=== PATIENT | male | born 1940 | race Caucasian/White ===

== ENCOUNTER 2017-12-23 21:27 | Inpatient (IN) ==
--- NOTE | 2017-12-23 22:50 | XR ---
EXAM DATE: 12/23/2017 10:32 PM EDT AGE/SEX: 77 years / Male INDICATIONS: Chest pain. CLINICAL DATA: This is the patient's initial encounter. Patient reports that signs and symptoms have been present for 1 day and indicates a pain score of 1/10. MEDICAL/SURGICAL HISTORY: . Smoker. . Heart transplant. COMPARISON: No prior exams available for comparison. FINDINGS: There is a focal area of consolidation or mass in the upper right lung. No prior study for comparison . Previous reported heart transplant. Remote left rib fractures. No effusion. Heart size normal. No p neumothorax. Remote granulomatous disease. CONCLUSION: Mass or consolidation right upper lobe. No prior study for comparison. Recommend further evaluation w ith chest CT. There are multiple calcified right paratracheal lymph nodes. Previous sternotomy and reported heart t ransplant. Electronically signed by: Nixno Huerta MD 12/23/2017 10:48 PM EDT
[2017-12-23 23:35] LABS: Hematocrit 25.4 % (39.0-51.0); Hemoglobin 8.6 gm/dL (13.0-17.0); Mean Corpuscular Hemoglobin 30.1 pg (27.0-34.0); Mean Corpuscular Volume 88.6 fL (80.0-100.0); Mean Platelet Volume 6.6 fL (7.0-11.0); Platelet Count 378 th/mm3 (150-450); Red Blood Count 2.86 mil/mm3 (4.50-5.90); Red Cell Distribution Width 15.5 % (11.6-17.2); White Blood Count 11.5 th/mm3 (4.0-11.0)
[2017-12-23 23:45] LABS: Activated Partial Thrombo Time 22.6 sec (24.3-30.1); Prothrombin Time 9.7 sec (9.8-11.6)
[2017-12-24 00:04] LABS: Alanine Aminotransferase 19 U/L (12-78); Alkaline Phosphatase 63 U/L (45-117); Anion Gap 11 meq/L (5-15); Aspartate Aminotransferase 36 U/L (15-37); Blood Urea Nitrogen 33 mg/dL (7-18); Calcium 7.6 mg/dL (8.5-10.1); Carbon Dioxide 22.1 meq/L (21.0-32.0); Chloride 100 meq/L (98-107); Creatine Kinase 122 U/L (39-308); Glomerular Filtration Rate 52 mL/min (>89); Glucose,Random 110 mg/dL (74-106); Sodium 133 meq/L (136-145); Total Protein 6.2 g/dL (6.4-8.2); Troponin I 0.03 ng/mL (0.02-0.05)
[2017-12-24 00:09] LABS: Potassium 5.2 meq/L (3.5-5.1)
[2017-12-24 00:21] LABS: Creatine Kinase MB 1.6 ng/mL (0.5-3.6)
[2017-12-24 01:04] LABS: Eosinophils 5 % (0-4); Lymphocytes 14 % (9-44); Monocytes 5 % (0-8)
[2017-12-24 01:05] LABS: Platelet Estimate Normal (Normal); Platelet Morphology Normal (Normal); Toxic Granulation 1+
[2017-12-24 01:06] LABS: Toxic Vacuolation Present
--- NOTE | 2017-12-24 02:52 | ED ---
HPI General Chief Complaint: Chest Pain Stated Complaint: Evac/Chest Pain Time Seen by Provider: 12/24/17 02:23 History of Present Illness HPI narrative: 77-year-old male presents to the emergency department for complaint of chest pain. Patient has history of previous CAD with myocardial infarction and bypass. Patient states that symptoms are similar to his chest pain symptoms at the time of his ND several years ago. Patient had some associated nausea without vomiting. Some sensation of shortness of breath. Patient states his pain is 6-7/10 in intensity and waxes and wanes in intensity. Patient received sublingual nitroglycerin prior to arrival to the emergency department with minimal effect. Patient denies any referred neck jaw back shoulder arm or abdominal pain. Patient is a [facility] patient with history of diabetes CAD myocardial infarction cardiac catheterization atrial fibrillation rest angina and bullous pemphigoid. Patient is currently on steroid therapy and no antibiotic. Patient's had no fever chills. No cough no congestion no orthopnea no PND no wheezing no abdominal pain no vomiting no diarrhea no urinary symptoms. Patient has lower extremity skin condition with blistering. Patient does not complain of any lower extremity pain at this time. Patient received aspirin prior to arrival to the emergency department and sublingual nitroglycerin. Patient is unable to identify exacerbating or alleviating factors at this time. Complete Quality Measures for STEMI Alert Patients Related Data Home Medications Medication Instructions Recorded Confirmed ascorbic acid (vitamin C) 500 mg PO Q12H 12/23/17 12/23/17 clonidine 1 patch TRANSDERMAL QWEEK 12/23/17 12/23/17 dexamethasone 4 mg PO Q12H 12/23/17 12/23/17 doxazosin 4 mg PO DAILY 12/23/17 12/23/17 insulin lispro 1 sliding scale dose SUB-Q UD 12/23/17 12/23/17 apixaban 2.5 mg PO BID 12/24/17 12/24/17 levothyroxine 75 mcg PO DAILY 12/24/17 12/24/17 lisinopril 20 mg PO DAILY 12/24/17 12/24/17 metoprolol tartrate 50 mg PO BID 12/24/17 12/24/17 multivitamin [Multiple Vitamins] 1 tab PO DAILY 12/24/17 12/24/17 Allergies Allergy/AdvReac Type Severity Reaction Status Date / Time No Known Allergies Allergy Unverified 12/23/17 22:10 Review of Systems Except as stated in HPI: all other systems reviewed are negative [facility] Medical History Medical History Diabetes (Acute) Myocardial infarction (Acute) Hypertension (Acute) Chest pain (Acute) Atrial fibrillation (Acute) Angina at rest (Acute) Surgical History Surgical History Hx of cardiac cath (Acute) Social History Social History Second Hand Smoke Exposure: Yes Smoking Status: Current every day smoker Tobacco Type: Cigarettes How Often Do You Have a Drink Containing Alcohol: Never Recent Travel in [facility] within the Last 8 Weeks: No Recent Out of Country Travel within the Last 8 Weeks: No Immunization History Tetanus Immunization: <5 Years Hx Influenza Vaccine This Season: Yes Exam Narrative Exam Narrative: GENERAL: Well-nourished, well-developed patient. SKIN: Focused skin assessment warm/dry. HEAD: Normocephalic. EYES: No scleral icterus. No injection or drainage. NECK: Supple, trachea midline. No JVD or lymphadenopathy. CARDIOVASCULAR: Regular rate and rhythm without murmurs, gallops, or rubs. Radial and dorsalis pedis pulses 2+ to palpation bilaterally RESPIRATORY: Breath sounds equal bilaterally. No accessory muscle use. GASTROINTESTINAL: Abdomen soft, non-tender, nondistended. MUSCULOSKELETAL: No cyanosis, or edema. Bilateral lower extremity various stages of bolus and vesicular lesions without purulent drainage or edema or tenderness. BACK: Nontender without obvious deformity. No CVA tenderness. Course Initial Documented Vital Signs Temperature 98.5 F 12/23/17 22:20 Pulse Rate 84 12/23/17 22:20 Respiratory Rate 20 12/23/17 22:20 Blood Pressure 225/105 H 12/23/17 22:20 Pulse Oximetry 99 12/23/17 22:20 Last Documented Vital Signs Temperature 98.5 F 12/23/17 22:26 Pulse Rate 94 H 12/24/17 05:50 Respiratory Rate 20 12/24/17 05:50 Blood Pressure 129/79 12/24/17 05:50 Pulse Oximetry 96 12/24/17 05:50 Medical Decision Making MDM Narrative Medical decision making narrative: 77-year-old male presents to the emergency department complaining of chest pain with prior history of CAD and myocardial infarction. Patient is received aspirin and nitroglycerin prior to arrival to the emergency department. Specimens collected and sent for resulting EKG performed reveals no acute ST elevation injury pattern or ectopy. Patient resting comfortably remains pain-free at this time. Lab values pending Chest x-ray shows right upper lobe mass versus infiltrate recommend CT CT negative for PE bilateral masses; patient's case discussed with on-call medicine regarding chest pain with prior history of coronary artery disease ND and stent placement as well as bypass surgery identified to have bilateral masses by CT imaging. Patient be admitted to medicine service for serial enzymes and further evaluation of abnormalities identified by CT imaging. Patient will be placed in observation. Patient discussed with Dr. Arevalo. Differential Diagnosis Differential Diagnosis: Chest pain atypical chest pain ACS ND pneumonia Medical Records Medical records reviewed: Yes I reviewed the patient's medical records. Lab Data Result diagrams: 12/23/17 23:25 12/23/17 23:25 Lab Results 12/23/17 12/23/17 12/23/17 Range/Units 23:25 23:25 23:25 WBC 11.5 H (4.0-11.0) th/mm3 RBC 2.86 L (4.50-5.90) mil/mm3 Hgb 8.6 L (13.0-17.0) gm/dL Hct 25.4 L (39.0-51.0) % MCV 88.6 (80.0-100.0) fL MCH 30.1 (27.0-34.0) pg MCHC 34.0 (32.0-36.0) % RDW 15.5 (11.6-17.2) % Plt Count 378 (150-450) th/mm3 MPV 6.6 L (7.0-11.0) fL Prelim Diff (Auto) Slide review pending WBC Differential Manual diff final Seg Neuts % (Manual) 66 (16-70) % Band Neuts % (Manual) 10 H (0-6) % Lymphocytes % (Manual) 14 (9-44) % Monocytes % (Manual) 5 (0-8) % Eosinophils % (Manual) 5 H (0-4) % Abs Neuts (Manual) 8.7 H (1.8-7.7) th/mm3 Differential Comment . Toxic Granulation 1+ H (None) Toxic Vacuolation Present H (None) Platelet Estimate Normal (Normal) Platelet Morphology Normal (Normal) PT 9.7 L (9.8-11.6) sec INR 1.0 Ratio APTT 22.6 L (24.3-30.1) sec Sodium 133 L (136-145) meq/L Potassium 5.2 H (3.5-5.1) meq/L Chloride 100 (98-107) meq/L Carbon Dioxide 22.1 (21.0-32.0) meq/L Anion Gap 11 (5-15) meq/L BUN 33 H (7-18) mg/dL Creatinine 1.33 H (0.60-1.30) mg/dL Estimated GFR 52 L (>89) mL/min Random Glucose 110 H (74-106) mg/dL Calcium 7.6 L (8.5-10.1) mg/dL Magnesium 2.0 (1.5-2.5) mg/dL Total Bilirubin 0.4 (0.2-1.0) mg/dL AST 36 (15-37) U/L ALT 19 (12-78) U/L Alkaline Phosphatase 63 (45-117) U/L Total Creatine Kinase 122 (39-308) U/L CK-MB (CK-2) 1.6 (0.5-3.6) ng/mL Troponin I 0.03 (0.02-0.05) ng/mL Total Protein 6.2 L (6.4-8.2) g/dL Albumin 2.0 L (3.4-5.0) g/dL 12/24/17 12/24/17 Range/Units 03:50 07:30 WBC (4.0-11.0) th/mm3 RBC (4.50-5.90) mil/mm3 Hgb (13.0-17.0) gm/dL Hct (39.0-51.0) % MCV (80.0-100.0) fL MCH (27.0-34.0) pg MCHC (32.0-36.0) % RDW (11.6-17.2) % Plt Count (150-450) th/mm3 MPV (7.0-11.0) fL Prelim Diff (Auto) WBC Differential Seg Neuts % (Manual) (16-70) % Band Neuts % (Manual) (0-6) % Lymphocytes % (Manual) (9-44) % Monocytes % (Manual) (0-8) % Eosinophils % (Manual) (0-4) % Abs Neuts (Manual) (1.8-7.7) th/mm3 Differential Comment Toxic Granulation (None) Toxic Vacuolation (None) Platelet Estimate (Normal) Platelet Morphology (Normal) PT (9.8-11.6) sec INR Ratio APTT (24.3-30.1) sec Sodium (136-145) meq/L Potassium (3.5-5.1) meq/L Chloride (98-107) meq/L Carbon Dioxide (21.0-32.0) meq/L Anion Gap (5-15) meq/L BUN (7-18) mg/dL Creatinine (0.60-1.30) mg/dL Estimated GFR (>89) mL/min Random Glucose (74-106) mg/dL Calcium (8.5-10.1) mg/dL Magnesium (1.5-2.5) mg/dL Total Bilirubin (0.2-1.0) mg/dL AST (15-37) U/L ALT (12-78) U/L Alkaline Phosphatase (45-117) U/L Total Creatine Kinase 61 (39-308) U/L CK-MB (CK-2) (0.5-3.6) ng/mL Troponin I 0.04 0.04 (0.02-0.05) ng/mL Total Protein (6.4-8.2) g/dL Albumin (3.4-5.0) g/dL Imaging Data Radiologist's impression: ITS Impressions Chest X-Ray 12/23/17 22:11 CONCLUSION: Mass or consolidation right upper lobe. No prior study for comparison. Recommend further evaluation with chest CT. There are multiple calcified right paratracheal lymph nodes. Previous sternotomy and reported heart transplant. Chest CTA 12/24/17 02:57 CONCLUSION: 1. The study is negative for pulmonary embolism. 2. Abnormal opacities in both lungs, the largest is anterior superior on the right measuring 3.7 cm. The other opacities are in the left lung near the periphery. All of the opacities are devoid of air bronchograms. Malignancy and infectious processes are differential considerations. ECG Data Interpretation: EKG: Sinus rhythm with significant background artifact no acute ST elevation injury pattern identified on multiple EKGs except what appears to be age-indeterminate QS septally Discharge Plan Discharge Disposition Patient Disposition: 30 Still Patient Discharge Details Discharge Problem: Chest pain, Lung mass Physicians Team ED Provider: Christina Ibarra Primary Care Provider: ANTONIO, Attending Provider: Heather Benedict Other Providers: Cas Up Discharge Interventions Interventions: Vital Signs Last Done: 12/24/17 05:50 Status ED Status: Admitted Observation Patient
[2017-12-24] MEDS ORDERED: Sodium Chlor 0.9% Inj 500 ML IV.SIG ONE (02:58)
[2017-12-24 04:20] LABS: Troponin I 0.04 ng/mL (0.02-0.05)
[2017-12-24] MEDS ORDERED: Temazepam 15 MG Capsule PO PRN (06:14)
[2017-12-24] MEDS ORDERED: Bisacodyl 10 MG Supp RECTAL PRN (06:14)
[2017-12-24] MEDS: Metoprolol Tartrate 50 MG Tablet PO SCH ×2 (08:42→23:22)
[2017-12-24] MEDS ORDERED: hydrALAZINE 10 MG Tablet PO PRN (15:20)
--- NOTE | 2017-12-24 15:55 | P.HP ---
History of Present Illness Primary Care Physician: UNKNOWN History of Present Illness: Patient is a 77-year-old male with past medical history of diabetes,bullous pemphigoid, [place] status post bypass surgery, hypertension, atrial fibrillation presented to the emergency room with complaints of chest pain. He states that he was laying in bed and he started experiencing chest pain in his mid chest rating it an 8 out of 10 which lasted about 45 minutes to an hour. He called 911 and was brought in. There was no nausea vomiting associated with the chest pain. He states that the pain is the same when he had that bypass surgery. He denied any lightheadedness or dizziness. He denies any radiation to his neck, jaw, arms. currently his chest pain has resolved since he received the nitroglycerin. He feels tired and wants to rest. He denies any lung issues in the past. He admits to coughing on and off however he states he has not been around any sick contacts. He denies any fevers or chills. He denies any abdominal pain. He tells me he has his blistering condition on his lower extremities but no one knows what is causing it. Someone changes the dressing every 1-2 days. Per ER documentation, the patient received sublingual nitroglycerin prior to the arrival to the emergency room with minimal effect, ER physician provided him with nitroglycerin ointment and per patient is helped. Past medical history: diabetes,bullous pemphigoid, [place] status post bypass surgery , hypertension, atrial fibrillation Past medical history: Bypass surgery, cardiac cath Family history: States his parents were healthy and does not comment on their health Social history: Quit smoking "the other night ". Used to smoke 2 packs a day for "plenty of years ", drinks 2-3 beers a day but also mentions "I drink as much as I want ". Denies illegal drug use CODE STATUS: Full - Inpatient Certification If this patient has been admitted as an Inpatient: I certify that the inpatient services were ordered in accordance with Medicare regulations governing the order. This includes certification that hospital inpatient services are reasonable and necessary and in the case of services not specified as inpatient-only under 42 CFR 419.22(n), that they are appropriately provided as inpatient services in accordance to with the 2-midnight benchmark under 43 CFR 412.3(e) Review of Systems All other systems reviewed negative except as stated in HPI [facility] - History History Provided By: Patient - Medical History Medical History: Medical History (Last Reviewed 12/24/17 @ 08:16 by Christina Ibarra MD) Diabetes (Acute) Myocardial infarction (Acute) Hypertension (Acute) Chest pain (Acute) Atrial fibrillation (Acute) Angina at rest (Acute) - Surgical History Surgical History: Surgical History (Last Reviewed 12/24/17 @ 08:16 by Christina Ibarra MD) Hx of cardiac cath (Acute) - Tobacco History Second Hand Smoke Exposure: Yes Tobacco Use In Past 30 Days: Yes Smoking Status: Current every day smoker Tobacco Type: Cigarettes - Alcohol History How Often Do You Have a Drink Containing Alcohol: Never - Travel History Recent Travel in the [place] Within the Last 8 Weeks: No Recent Travel Out of the Country Within the Last 8 Weeks: No - Immunization History Tetanus Immunization: <5 Years Hx Influenza Vaccine This Season: Yes Medications and Allergies Active Medications: Active Medications Al Hydroxide/Mg Hydroxide (Milk Of Magnesia Liq) 30 ml PO Q12H PRN PRN Reason: Mild Constipation Bisacodyl (Dulcolax Supp) 10 mg RECTAL DAILY PRN PRN Reason: SEVERE CONSITIPATION Clonidine HCl (Catapress-Tts 0.1 Mg Patch.7d) 1 patch T-DERMAL Q7D [facility] Last Admin: 12/24/17 08:42 Dose: 1 patch Dexamethasone (Decadron) 4 mg PO Q12H [facility] Last Admin: 12/24/17 06:41 Dose: 4 mg Doxazosin Mesylate (Cardura) 4 mg PO DAILY [facility] Hydralazine HCl (Apresoline) 10 mg PO Q6H PRN PRN Reason: SBP>160, DBP>90 Lactulose (Lactulose Liq) 30 ml PO DAILY PRN PRN Reason: SEVERE CONSITIPATION Levothyroxine Sodium (Synthroid) 75 mcg PO DAILY@0600 [facility] Metoprolol Tartrate (Lopressor) 50 mg PO BID [facility] Last Admin: 12/24/17 08:42 Dose: 50 mg Sennosides (Senokot) 17.2 mg PO Q12H PRN PRN Reason: Moderate Constipation Sodium Chloride (Ns Flush) 2 ml IV.FLUSH UNSCH PRN PRN Reason: FLUSH AFTER USING IV ACCESS Temazepam (Restoril) 15 mg PO HS PRN PRN Reason: INSOMNIA Allergies Allergy/AdvReac Type Severity Reaction Status Date / Time No Known Allergies Allergy Unverified 12/23/17 22:10 Home Medications Medication Instructions Recorded Confirmed Type ascorbic acid (vitamin C) 500 mg PO Q12H 12/23/17 12/23/17 History clonidine 1 patch TRANSDERMAL QWEEK 12/23/17 12/23/17 History dexamethasone 4 mg PO Q12H 12/23/17 12/23/17 History doxazosin 4 mg PO DAILY 12/23/17 12/23/17 History insulin lispro 1 sliding scale dose SUB-Q UD 12/23/17 12/23/17 History apixaban 2.5 mg PO BID 12/24/17 12/24/17 History levothyroxine 75 mcg PO DAILY 12/24/17 12/24/17 History lisinopril 20 mg PO DAILY 12/24/17 12/24/17 History metoprolol tartrate 50 mg PO BID 12/24/17 12/24/17 History multivitamin [Multiple Vitamins] 1 tab PO DAILY 12/24/17 12/24/17 History Exam Vital signs: Vital Signs 12/23/17 22:20 12/23/17 22:25 12/23/17 22:26 Temperature 98.5 F 98.5 F Pulse Rate 84 86 Pulse Rate [Left] 87 Respiratory Rate 20 20 20 Blood Pressure 225/105 H 208/91 H Blood Pressure [Left Arm] 217/96 H Blood Pressure [Right Arm] 220/90 H Pulse Oximetry 99 99 100 12/23/17 23:46 12/24/17 05:50 12/24/17 08:42 Temperature Pulse Rate 94 H 97 H Pulse Rate [Left] Respiratory Rate 20 20 18 Blood Pressure 129/79 154/85 H Blood Pressure [Left Arm] Blood Pressure [Right Arm] Pulse Oximetry 96 99 12/24/17 13:37 12/24/17 14:03 Temperature 98.1 F 98.3 F Pulse Rate 71 64 Pulse Rate [Left] Respiratory Rate 18 14 Blood Pressure 172/78 H 185/83 H Blood Pressure [Left Arm] Blood Pressure [Right Arm] Pulse Oximetry 99 99 Intake & Output 12/23/17 12/24/17 12/24/17 18:59 06:59 18:59 Intake Total 500 / 500 Balance 500 / 500 Weight 72.575 kg Intake: IV 500 / 500 Narrative: GENERAL: Laying on his right side, covers over himself SKIN: Multiple large blisters on the lower extremities, multiple large open wounds on the feet, draining clear fluid, no overt signs of infection. There was some foul smell when removing the dressing. Dressing with old HEAD: Atraumatic. Normocephalic. EYES: Extraocular motion intact. No scleral icterus. No injection or drainage. NECK: Trachea midline. CARDIOVASCULAR: Regular rate and rhythm. RESPIRATORY: No accessory muscle use. Clear to auscultation. No wheezes GASTROINTESTINAL: Abdomen soft, non-tender, nondistended. MUSCULOSKELETAL: Extremities with 1+edema. No obvious deformities. NEUROLOGICAL: Awake and alert. Normal speech. Some weakness noted in lower extremities however he is very painful from his blisters are difficult to assess. PSYCHIATRIC: Appropriate mood and affect; insight and judgment normal. Results - Labs CBC & Chem 7: 12/23/17 23:25 12/23/17 23:25 Labs: Laboratory Results - last 24 hr 12/23/17 12/23/17 12/23/17 23:25 23:25 23:25 WBC 11.5 H RBC 2.86 L Hgb 8.6 L Hct 25.4 L MCV 88.6 MCH 30.1 MCHC 34.0 RDW 15.5 Plt Count 378 MPV 6.6 L Prelim Diff (Auto) Slide review pending WBC Differential Manual diff final Seg Neuts % (Manual) 66 Band Neuts % (Manual) 10 H Lymphocytes % (Manual) 14 Monocytes % (Manual) 5 Eosinophils % (Manual) 5 H Abs Neuts (Manual) 8.7 H Differential Comment . Toxic Granulation 1+ H Toxic Vacuolation Present H Platelet Estimate Normal Platelet Morphology Normal PT 9.7 L INR 1.0 APTT 22.6 L Sodium 133 L Potassium 5.2 H Chloride 100 Carbon Dioxide 22.1 Anion Gap 11 BUN 33 H Creatinine 1.33 H Estimated GFR 52 L Random Glucose 110 H Calcium 7.6 L Magnesium 2.0 Total Bilirubin 0.4 AST 36 ALT 19 Alkaline Phosphatase 63 Total Creatine Kinase 122 CK-MB (CK-2) 1.6 Troponin I 0.03 Total Protein 6.2 L Albumin 2.0 L 12/24/17 12/24/17 03:50 07:30 WBC RBC Hgb Hct MCV MCH MCHC RDW Plt Count MPV Prelim Diff (Auto) WBC Differential Seg Neuts % (Manual) Band Neuts % (Manual) Lymphocytes % (Manual) Monocytes % (Manual) Eosinophils % (Manual) Abs Neuts (Manual) Differential Comment Toxic Granulation Toxic Vacuolation Platelet Estimate Platelet Morphology PT INR APTT Sodium Potassium Chloride Carbon Dioxide Anion Gap BUN Creatinine Estimated GFR Random Glucose Calcium Magnesium Total Bilirubin AST ALT Alkaline Phosphatase Total Creatine Kinase 61 CK-MB (CK-2) Troponin I 0.04 0.04 Total Protein Albumin - Imaging Impressions Chest X-Ray 12/23/17 22:11 CONCLUSION: Mass or consolidation right upper lobe. No prior study for comparison. Recommend further evaluation with chest CT. There are multiple calcified right paratracheal lymph nodes. Previous sternotomy and reported heart transplant. Chest CTA 12/24/17 02:57 CONCLUSION: 1. The study is negative for pulmonary embolism. 2. Abnormal opacities in both lungs, the largest is anterior superior on the right measuring 3.7 cm. The other opacities are in the left lung near the periphery. All of the opacities are devoid of air bronchograms. Malignancy and infectious processes are differential considerations. Caprini VTE Risk Assessment Caprini VTE Risk Assessment: Moderate/High Risk (score >= 2) Caprini Risk Assessment Model: Point Value = 1 Point Value = 2 Point Value = 3 Point Value = 5 Age 41-60 Minor surgery BMI > 25 kg/m2 Swollen legs Varicose veins or History of unexplained or recurrent spontaneous Oral contraceptives or hormone replacement Sepsis (< 1 month) Serious lung disease, including pneumonia (< 1 month) Abnormal pulmonary function Acute myocardial infarction Congestive heart failure (< 1 month) History of inflammatory bowel disease Medical patient at bed rest Age 61-74 Arthroscopic surgery Major open surgery (> 45 min) Laparoscopic surgery (> 45 min) Malignancy Confined to bed (> 72 hours) Immobilizing plaster cast Central venous access Age >= 75 History of VTE Family history of VTE Factor V Leiden Prothrombin [id number] Lupus anticoagulant Anticardiolipin antibodies Elevated serum homocysteine Heparin-induced thrombocytopenia Other congenital or acquired thrombophilia Stroke (< 1 month) Elective arthroplasty Hip, pelvis, or leg fracture Acute spinal cord injury (< 1 month) Prophylaxis Regimen: Total Risk Factor Score Risk Level Prophylaxis Regimen 0-1 Low Early ambulation 2 Moderate Order ONE of the following: *Sequential Compression Device (SCD) *Heparin 5000 units SQ BID 3-4 Higher Order ONE of the following medications: *Heparin 5000 units SQ TID *Enoxaparin/Lovenox 40 mg SQ daily (WT < 150 kg, CrCl > 30 mL/min) *Enoxaparin/Lovenox 30 mg SQ daily (WT < 150 kg, CrCl > 10-29 mL/min) *Enoxaparin/Lovenox 30 mg SQ BID (WT < 150 kg, CrCl > 30 mL/min) AND/OR *Sequential Compression Device (SCD) 5 or more Highest Order ONE of the following medications: *Heparin 5000 units SQ TID (Preferred with Epidurals) *Enoxaparin/Lovenox 40 mg SQ daily (WT < 150 kg, CrCl > 30 mL/min) *Enoxaparin/Lovenox 30 mg SQ daily (WT < 150 kg, CrCl > 10-29 mL/min) *Enoxaparin/Lovenox 30 mg SQ BID (WT < 150 kg, CrCl > 30 mL/min) AND *Sequential Compression Device (SCD) Assessment and Plan - Plan 77-year-old male with Chest pain: hx of [place] status post bypass surgery,History of bypass surgery. Troponin 3 have been negative however patient states the chest pain was the same as when he had his bypass surgery. Nitroglycerin patch helped. Will consult cardiology, Dr. Caicedo aware. Aspirin, morphine and nitroglycerin as needed. Pt already on BB. diabetes: low dose ISS, monitor BS closely. check HbA1C bullous pemphigoid: open wounds over lower ext. Will consult wound care. Appreciate assistance hypertension: home med resumed. Not well controlled. added hydralazine prn atrial fibrillation: on BB. resumed eliquis DVT proph: eliquis Of note pt admits to drinking. will place him on CIWA protocol. fall and sx precautions. he has been counseled
[2017-12-24] MEDS ORDERED: Morphine Inj 4 MG/ML Vial IV.PUSH PRN (16:07)
[2017-12-24] MEDS ORDERED: Dextrose 50% in Water 50 ML Vial IV.PUSH PRN (16:11)
[2017-12-24] MEDS ORDERED: LORazepam 1 MG Tablet PO PRN (16:15)
[2017-12-24] MEDS ORDERED: Haloperidol Inj 5 MG/ML Ampul IV.PUSH PRN (16:15)
[2017-12-24] MEDS: Doxazosin 4 MG Tablet PO SCH (16:43)
[2017-12-24] MEDS: amLODIPine 10 MG Tablet PO SCH (17:26)
--- NOTE | 2017-12-24 17:35 | MB ---
cc: Rohan Caicedo MD DATE: 12/24/2017 REASON FOR CARDIOLOGY CONSULTATION Evaluation of chest pain. HISTORY OF PRESENT ILLNESS: Chaim Shannon is a 77-year-old man admitted to the hospital with chest pain. The patient smokes 2 packs a day. He has had previous bypass surgery, he says, in [place] about 15-20 years ago. He has hypertension and diabetes. He has had a previous heart attack. Apparently is on Eliquis for AFib. I was not able to confirm that with the patient and the Eliquis dose is incorrect. The patient has not been to a doctor in the years, but he said the [facility] will ship the medications to where he is living. He does not have a stable home life. He apparently came in due to chest pain. The patient is able to tell me it was like a needle stabbing him, which is different than the history gave the other doctors. He has been having ongoing weight loss. He has sores on his legs, which he says stink and have been ongoing. He has now been shown to be severely anemic and has a lung mass. He is not having any active chest pain at the time I am seeing him. MEDICATIONS AT HOME: Include: 1. Clonidine. 2. Eliquis. 3. Levothyroxine. 4. Lisinopril. 5. Metoprolol. PAST MEDICAL HISTORY: Includes diabetes, bullous pemphigus, previous NC, previous bypass, hypertension, possible atrial fibrillation but not able to verify that completely. SOCIAL HISTORY: Originally from [place], has lived here since 1955. Longstanding smoking. He says he completely gave up drinking and prior to that, he was an alcoholic. He has given different history to the different providers that have seen him. PHYSICAL EXAMINATION: GENERAL: Shows an unkempt white male lying on his side almost in a type position. VITAL SIGNS: Charted. HEENT: Atraumatic, normocephalic. NECK: Shows no JVD or bruits. CHEST: Diminished breath sounds. CARDIAC: S1, S2. Regular rate and rhythm, I/ systolic ejection murmur. ABDOMEN: Soft. EXTREMITIES: Reveal rashes on his legs. Pulses are palpable. DIAGNOSTIC STUDIES: Hematocrit 25.4; white count is 11,500 with 10% bands. Creatinine is 1.33. Troponin was 0.03, 0.04, 0.04. EKG did not show any acute ST-T wave changes. He has had a chest x-ray and a CT scan. He has got a 3.7 x 2.6 cm right upper lobe mass and also has masses in the left lower chest, 3.3 x 1.4 cm and two 7 mm masses. IMPRESSION: A 77-year-old male with coronary artery disease, longstanding smoking, noncompliance, poor social situation, comes in now with chest pain. There is no evidence for a myocardial infarction. Troponins are fairly flat. EKG does not show acute changes. On top of this, we got severe anemia and possibility of lung cancer by the CT scan. RECOMMENDATIONS: I am going to stay conservative on his heart while his anemia and possible lung cancer get worked up further. There is currently no evidence for infarction. Get him restarted on his medications. He was markedly hypertensive on admission. Hopefully, getting him back on his medications, his blood pressure will normalize. Further therapy to be determined. MD IVY Isidro/TERENCE , 05:14 PM , 05:33 PM
--- NOTE | 2017-12-24 18:00 | ECG ---
Date Performed: 12/24/2017 Time Performed: 07:18:31 PTAGE: 77 years EKG: Sinus rhythm WITH OCCASIONAL SUPRAVENTRICULAR PREMATURE COMPLEXES BORDERLINE ECG NO PREVIOUS TRACING DOCTOR: Marie Tavarez Interpretating Date/Time 12/24/2017 17:57:51
--- NOTE | 2017-12-24 18:23 | P.CON ---
History of Present Illness Service: Hematology/oncology. Consult date: 12/24/17 Primary Care Provider: [facility]. [facility] team. Chief Complaint: Substernal chest pain. Unintended weight loss. Generalized fatigue. History of Present Illness: Mr. Shannon is a very pleasant 77-year-old male with an extensive past history of tobaccoism, he reports having smoked daily for about 60 years before he quit "a few days ago ". 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 The patient prior to this hospitalization was a resident of a longterm facility, prior to that he had been residing in a motel in [place]. Mr. Shannon reports progressive weakness and fatigue and unintended weight loss over the past several months, in October 2017 he was hospitalized at this facility for blister-like fluid-filled lesions on his skin. He was assessed to have pemphigus and was evaluated by various medical specialties and was recommended outpatient evaluation by dermatology. Following discharge from this facility I believe he was transferred to a longterm facility. The patient at that time i.e. October 2017 underwent a chest x-ray which was assessed to have no acute abnormalities. On the day of presentation the patient reports noting chest pain, he points to his sternum, he tells me the pain was severe and arose "out of the blue ". He was brought into the emergency department here at [facility] and since admission has been initiated on a nitroglycerin patch and I believe is currently awaiting a cardiac workup. CT angiogram of the chest was performed, this revealed an approximate 3.5 cm mass involving the right upper lobe of the lung concerning for either a consolidative pneumonia or neoplasm. Additionally he was noted to have a opacity involving the left lower lobe posterior segment in the supra diaphragmatic area which is also concerning for either consolidative process, atelectasis or underlying malignancy. The oncology service is been asked to see him for further workup and management. At present the patient denies ongoing chest pain. Review of Systems Constitutional: Reports anorexia, Reports daytime sleepiness, Reports fatigue, Reports lack of energy, Reports malaise, Reports weakness, Reports weight loss, Denies body ache(s), Denies chills, Denies excessive sweating, Denies fever(s), Denies headache(s), Denies increased appetite, Denies night sweats, Denies weight gain, Denies other Eyes: Denies blind spots, Denies blurry vision, Denies bulging eyes, Denies change in vision, Denies double vision, Denies discharge, Denies dry eyes, Denies floaters, Denies irritation, Denies itchy eyes, Denies loss of vision, Denies pain, Denies requires corrective lenses, Denies sensitivity to light, Denies other Ears, Nose, Mouth, and Throat: Denies abnormal hearing, Denies bleeding gums, Denies bad breath, Denies change in voice, Denies dental pain, Denies difficulty swallowing, Denies dizziness, Denies dry mouth, Denies ear discharge , Denies ear pain, Denies facial pain, Denies headache(s), Denies hearing loss, Denies hoarseness, Denies lip swelling, Denies nosebleed, Denies mouth lesions, Denies mouth pain, Denies nasal congestion, Denies nasal discharge, Denies nasal obstruction, Denies nasal trauma, Denies neck lump, Denies neck pain, Denies nose pain, Denies pain with swallowing, Denies poor balance, Denies post nasal drip, Denies ringing in the ears, Denies sinus pain, Denies sinus pressure , Denies sore throat, Denies throat swelling, Denies tongue swelling, Denies other Cardiovascular: Reports chest pain, Reports foot swelling, Reports leg sores, Reports leg swelling, Reports shortness of breath, Reports shortness of breath with activity, Denies chest pain at rest, Denies chest pain with activity, Denies excessive sweating, Denies fainting, Denies fast heart rate, Denies generalized swelling, Denies irregular heart rhythm, Denies leg pain with activity, Denies lightheadedness, Denies radiating jaw, neck or arm pain, Denies rapid, pounding, or irregular heartbeat, Denies shortness of breath when lying down, Denies shortness of breath causing sudden awakening, Denies slow heart rate, Denies other Respiratory: Reports chest congestion, Reports cough, Reports shortness of breath, Denies change in phlegm color, Denies coughing up blood, Denies excessive phlegm production, Denies pain on inspiration, Denies pain with cough , Denies shortness of breath with activity, Denies snoring, Denies stridor, Denies wheezing, Denies other Gastrointestinal: Denies abdominal pain, Denies belching, Denies black, tarry stools, Denies bloating, Denies bright, red blood in stools, Denies change in bowel habits, Denies constant urge to pass stool, Denies change in stools, Denies coffee ground vomit, Denies constipation, Denies cramping, Denies difficulty swallowing, Denies excessive passing of gas, Denies feeling full early, Denies heartburn, Denies incontinent of stools, Denies loose stools, Denies nausea, Denies pain with swallowing, Denies vomiting, Denies vomiting blood, Denies other Genitourinary: Denies blood in semen, Denies blood in urine, Denies decreased urination, Denies difficulty urinating, Denies difficulty with ejaculations, Denies erectile dysfunction, Denies genital lesions, Denies genital pain, Denies painful urination, Denies side pain, Denies frequent nighttime urination , Denies painful ejaculations, Denies penile discharge, Denies scrotal swelling , Denies testicle lump, Denies testicle pain, Denies urinary frequency, Denies urinary hesitancy, Denies urinary incontinence, Denies urinary urgency, Denies other Musculoskeletal: Denies abnormal walking, Denies back pain, Denies body aches, Denies decreased muscle mass, Denies deformity, Denies joint pain, Denies joint swelling, Denies limited joint movement, Denies loss of height, Denies muscle cramps, Denies muscle weakness, Denies neck pain, Denies numbness, Denies radiating pain into limb, Denies stiffness, Denies tingling, Denies other Skin/Breast: Reports bleeding lesions, Reports change in skin color, Reports lesions, Reports new lesions, Reports non-healing lesions, Reports redness, Reports rash, Reports skin ulcer, Reports sores, Reports wounds, Denies acne, Denies boil, Denies breast swelling, Denies breast skin changes, Denies breast pain, Denies breast lump, Denies change in breast shape, Denies change in hair, Denies changing lesions, Denies dry skin, Denies excessive hair growth, Denies hair loss, Denies itching, Denies nail changes, Denies nipple discharge, Denies sensitivity to light, Denies skin pain, Denies stretch cardoso, Denies unusual bruising, Denies yellowing of the skin, Denies other Neurologic: Denies abnormal hearing, Denies abnormal movements, Denies abnormal speech, Denies abnormal walking, Denies behavioral changes, Denies burning sensations, Denies confusion, Denies dizziness, Denies fainting, Denies frequent falls, Denies headache(s), Denies lack of coordination, Denies localized weakness, Denies loss of vision, Denies memory loss, Denies numbness, Denies other visual disturbances, Denies radiating pain, Denies restless legs, Denies convulsions, Denies seizure-like activity, Denies sensory deficit, Denies tingling, Denies tingling/numbness/burning sensations, Denies tremor(s), Denies unsteadiness, Denies weakness, Denies other Psychiatric: Denies abnormal sleep pattern, Denies anxiety, Denies behavioral changes, Denies change in appetite, Denies change in sex drive, Denies confusion , Denies depression, Denies difficulty concentrating, Denies hearing things others do not hear, Denies hopelessness, Denies irritability, Denies lack of enjoyment, Denies memory loss, Denies mood swings, Denies panic attacks, Denies paranoia, Denies seeing things others do not see, Denies sensing things others do not sense, Denies tactile hallucinations, Denies thoughts of hurting/killing others, Denies thoughts of hurting/killing yourself, Denies other Endocrine: Denies cold intolerance, Denies excessive sweating, Denies flushing, Denies heat intolerance, Denies increased hunger, Denies increased thirst, Denies increased urination, Denies rapid, pounding, or irregular heartbeat, Denies other Hematologic/Lymphatic: Reports easy bruising, Denies easy bleeding, Denies enlarged lymph nodes, Denies other Allergic/Immunologic: Denies GI upset with certain foods, Denies hives, Denies itchy eyes, Denies lip swelling, Denies seasonal runny nose, Denies throat swelling, Denies tongue swelling, Denies wheezing, Denies other PMFSH - History History Provided By: Patient - Medical History Medical History: Medical History (Last Updated 12/24/17 @ 18:16 by Vinay Butler MD) Diabetes (Acute) Myocardial infarction (Acute) Hypertension (Acute) Chest pain (Acute) Atrial fibrillation (Acute) Angina at rest (Acute) Coronary artery disease Lesion of left lung Lesion of right lung - Surgical History Surgical History: Surgical History (Last Updated 12/24/17 @ 18:16 by Vinay Butler MD) Hx of cardiac cath (Acute) S/P CABG x 3 - Tobacco History Second Hand Smoke Exposure: Yes Tobacco Use In Past 30 Days: Yes Smoking Status: Current every day smoker Tobacco Type: Cigarettes - Alcohol History How Often Do You Have a Drink Containing Alcohol: Never - Travel History Recent Travel in the [place] Within the Last 8 Weeks: No Recent Travel Out of the Country Within the Last 8 Weeks: No - Immunization History Tetanus Immunization: <5 Years Hx Influenza Vaccine This Season: Yes Medications and Allergies Active Medications: Active Medications Al Hydroxide/Mg Hydroxide (Milk Of Sophia Reagan) 30 ml PO Q12H PRN PRN Reason: Mild Constipation Amlodipine Besylate (Norvasc) 10 mg PO DAILY [facility] Aspirin (Ecotrin) 81 mg PO DAILY [facility] Azithromycin (Zithromax) 500 mg PO DAILY [facility] Bisacodyl (Dulcolax Supp) 10 mg RECTAL DAILY PRN PRN Reason: SEVERE CONSITIPATION Clonidine HCl (Catapress-Tts 0.1 Mg Patch.7d) 1 patch T-DERMAL Q7D [facility] Last Admin: 12/24/17 08:42 Dose: 1 patch Clonidine HCl (Catapres) 0.2 mg PO Q6H PRN PRN Reason: SBP>180, DBP>100, HR>65 Dexamethasone (Decadron) 4 mg PO Q12H [facility] Last Admin: 12/24/17 06:41 Dose: 4 mg Dextrose (D50w Vial) 50 ml IV.PUSH UNSCH PRN PRN Reason: PER HYPOGLYCEMIA PROTOCOL Doxazosin Mesylate (Cardura) 4 mg PO DAILY [facility] Last Admin: 12/24/17 16:43 Dose: 4 mg Flumazenil (Romazecon Inj) 0.2 mg IV.PUSH Q1M PRN PRN Reason: OVERSEDATION Glucagon (Glucagon Inj) 1 mg OTHER PRN PRN PRN Reason: for Hypoglycemia Protocol Haloperidol Lactate (Haldol Inj) 1 mg IV.PUSH Q15M PRN PRN Reason: for severe agitation Hydralazine HCl (Apresoline) 10 mg PO Q6H PRN PRN Reason: SBP>160, DBP>90 Last Admin: 12/24/17 16:39 Dose: 10 mg Sodium Chloride (Ns Inj) 1,000 mls @ 84 mls/hr IV.CONT .[id number] [facility] Ceftriaxone Sodium 1,000 mg/ (Sodium Chloride) 100 mls @ 200 mls/hr IV.SIG Q24H [facility] Insulin Aspart (Novolog Insulin Suppl Scale Inj) 0 unit SQ ACHS [facility]; Protocol Lactulose (Lactulose Liq) 30 ml PO DAILY PRN PRN Reason: SEVERE CONSITIPATION Levothyroxine Sodium (Synthroid) 75 mcg PO DAILY@0600 [facility] Lorazepam (Ativan) 1 mg PO Q4H PRN PRN Reason: for CIWA 8-10 Lorazepam (Ativan) 2 mg PO Q2H PRN PRN Reason: for CIWA 11-14 Lorazepam (Ativan Inj) 2 mg IV.PUSH Q2H PRN PRN Reason: for CIWA 11-14 Lorazepam (Ativan Inj) 2 mg IV.PUSH Q1H PRN PRN Reason: for CIWA 15-20 Lorazepam (Ativan Inj) 2 mg IV.PUSH Q15M PRN PRN Reason: for CIWA > 20 Lorazepam (Ativan Inj) 1 mg IV.PUSH Q4H PRN PRN Reason: for CIWA 8-10 Metoprolol Tartrate (Lopressor) 50 mg PO BID [facility] Last Admin: 12/24/17 08:42 Dose: 50 mg Morphine Sulfate (Morphine Inj) 2 mg IV.PUSH Q4H PRN PRN Reason: CHEST PAIN Nitroglycerin (Nitro-Bid 2% Oint) 0.5 inch TOPICAL Q6HR [facility] Sennosides (Senokot) 17.2 mg PO Q12H PRN PRN Reason: Moderate Constipation Sodium Chloride (Ns Flush) 2 ml IV.FLUSH UNSCH PRN PRN Reason: FLUSH AFTER USING IV ACCESS Temazepam (Restoril) 15 mg PO HS PRN PRN Reason: INSOMNIA Allergies Allergy/AdvReac Type Severity Reaction Status Date / Time No Known Allergies Allergy Unverified 12/23/17 22:10 Home Medications Medication Instructions Recorded Confirmed Type ascorbic acid (vitamin C) 500 mg PO Q12H 12/23/17 12/23/17 History clonidine 1 patch TRANSDERMAL QWEEK 12/23/17 12/23/17 History dexamethasone 4 mg PO Q12H 12/23/17 12/23/17 History doxazosin 4 mg PO DAILY 12/23/17 12/23/17 History insulin lispro 1 sliding scale dose SUB-Q UD 12/23/17 12/23/17 History apixaban 2.5 mg PO BID 12/24/17 12/24/17 History levothyroxine 75 mcg PO DAILY 12/24/17 12/24/17 History lisinopril 20 mg PO DAILY 12/24/17 12/24/17 History metoprolol tartrate 50 mg PO BID 12/24/17 12/24/17 History multivitamin [Multiple Vitamins] 1 tab PO DAILY 12/24/17 12/24/17 History Physical Exam Vital signs: Vital Signs 12/23/17 22:20 12/23/17 22:25 12/23/17 22:26 Temperature 98.5 F 98.5 F Pulse Rate 84 86 Pulse Rate [Left] 87 Respiratory Rate 20 20 20 Blood Pressure 225/105 H 208/91 H Blood Pressure [Left Arm] 217/96 H Blood Pressure [Right Arm] 220/90 H Pulse Oximetry 99 99 100 12/23/17 23:46 12/24/17 05:50 12/24/17 08:42 Temperature Pulse Rate 94 H 97 H Pulse Rate [Left] Respiratory Rate 20 20 18 Blood Pressure 129/79 154/85 H Blood Pressure [Left Arm] Blood Pressure [Right Arm] Pulse Oximetry 96 99 12/24/17 13:37 12/24/17 14:03 12/24/17 16:00 Temperature 98.1 F 98.3 F 99.1 F Pulse Rate 71 64 67 Pulse Rate [Left] Respiratory Rate 18 14 18 Blood Pressure 172/78 H 185/83 H 224/88 H Blood Pressure [Left Arm] Blood Pressure [Right Arm] Pulse Oximetry 99 99 100 12/24/17 17:25 Temperature Pulse Rate Pulse Rate [Left] Respiratory Rate Blood Pressure 151/75 H Blood Pressure [Left Arm] Blood Pressure [Right Arm] Pulse Oximetry Intake & Output 12/23/17 12/24/17 12/24/17 18:59 06:59 18:59 Intake Total 500 / 500 Balance 500 / 500 Weight 72.575 kg Intake: IV 500 / 500 - Constitutional no acute distress Comments: Chronically ill-appearing elderly male, laying in bed not acutely distressed. Wrapped in multiple blankets. - Routine HEENT Exam Head: Present: normocephalic, atraumatic. Absent: cushingoid faces, abrasion, laceration, hematoma Eye: Present: EOMI, PERRL, normal accommodation. Absent: implant ENT: Present: mucous membranes moist, oropharynx clear - Routine Neck Exam Present: supple, full ROM. Absent: JVD, carotid bruit, normal carotid upstroke - Routine Respiratory Exam Present: prolonged expiratory phase. Absent: accessory muscle use, rales, respiratory distress, rhonchi, stridor, wheezes, crackles - Routine Cardiovascular Exam Present: RRR, S1, S2 - Routine Abdominal Exam Present: soft, normoactive bowel sounds. Absent: tenderness, distended, rebound , guarding, firm, rigid, organomegaly, mass - Detailed Abdominal Exam Palpation/Percussion: Absent: hepatomegaly, Almanza's sign, splenomegaly Abdominal exam hernia: Absent: epigastric, incisional - Routine Extremities Exam Comments: Bilateral lower extremity edema. Extensive skin changes related to pemphigus and bruising. - Routine Neurological Exam Present: alert, oriented X3, CN II-XII intact, normal reflexes. Absent: sensory deficit, motor deficit - Detailed Neurological Exam: Coma Scale Eye Opening: Spontaneous - Routine Psychiatric Exam Present: normal affect Assessment and Plan - Assessment (1) Lung mass Code(s): R91.8 - Other nonspecific abnormal finding of lung field Status: Acute Plan: CT-guided biopsy of right upper lobe lung mass ordered. (2) Anemia Code(s): D64.9 - Anemia, unspecified Status: Acute Plan: Etiology of anemia not known, serum iron studies ordered. Stool for occult blood testing has been ordered as well, sample collection and results are pending. - Plan Mr. Shannon is a 77-year-old male with an extensive past history of tobaccoism, pemphigus, coronary artery disease and what appears to be failure to thrive. He presents to the hospital with complaints of sternal chest pain. Imaging studies performed in the emergency department revealed a consolidative mass involving the right upper lobe of the lung and a second mass/lesion involving the left lower lobe. Oncology service and asked to see him for further workup and management. Plan: 1. Right upper lobe lung mass: Request CT-guided biopsy. This is been ordered. 2. Complete staging with CT scan of the abdomen pelvis. 3. Anemia: Request serum iron studies, stool for occult blood has been ordered already. Oncology follow along with you. Records will need to be 4 to the [facility] in [place]. Code Status: Full Discussed Condition With: Patient.
--- NOTE | 2017-12-24 18:57 | CT ---
EXAM DATE: 12/24/2017 6:38 PM EDT AGE/SEX: 77 years / Male INDICATIONS: Tumor. CLINICAL DATA: This is the patient's initial encounter. Patient reports that signs and symptoms have been present for 1 day and indicates a pain score of Nonresponsive. MEDICAL/SURGICAL HISTORY: Diabetes. Cardiovascular disease. Hypertension. None. RADIATION DOSE: 4.97 CTDI (mGy) COMPARISON: [facility], CTA PULMONARY W CONTRAST W 3D, 12/24/2017. . TECHNIQUE: Multiple contiguous axial images were obtained through the abdomen. Images were obtained using multiple row detector helical technique. Using automated exposure control and adjustment of the mA and/or kV according to patient size, radiation dose was kept as low as reasonably achievable to o btain optimal diagnostic quality images. DICOM format image data is available electronically for rev iew and comparison. FINDINGS: Liver: The liver has a homogeneous density without space-occupying lesion. There is no dilation of th e biliary tree. Spleen: Homogeneous density without enlargement. Pancreas: Unremarkable without mass or calcification. Kidneys: Normal in size and shape. No evidence of mass or hydronephrosis. Adrenal Glands: Unremarkable. Aorta: Dense atherosclerotic vascular calcifications. Previous right iliac stenting. 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 No evidence of aneurysm. IVC filter in place. Bowel/Mesentery: The bowel loops are grossly unremarkable. The cecum and sigmoid colon have a nilo l configuration. Abdominal Wall: Intact. Retroperitoneum: No evidence of adenopathy in the retrocrural, para-aortic, or deep pelvic regions. Bladder: Dilated. Reproductive Organs: No abnormal masses or calcifications seen. Inguinal: The inguinal region is unremarkable without evidence of adenopathy. Bony Structures: Unremarkable. CONCLUSION: 1. No definite suspicious CT findings in the abdomen or pelvis. 2. Severe atherosclerotic vascular disease. 3. Dilated urinary bladder. Electronically signed by: Blaze Michelle MD 12/24/2017 6:56 PM EDT
--- NOTE | 2017-12-24 19:41 | MB ---
cc: Marcos Houston MD, V J MD DATE: 12/24/2017 REASON FOR CONSULTATION: Respiratory insufficiency and lung infiltrates. HISTORY OF PRESENT ILLNESS: This is a 77-year-old man with a past history of COPD and history of smoking for over 60 years who was experiencing chest pains and shortness of breath and apparently was sent to the ER from his custodial facility. The patient has lost weight and states that he has lost over 50 pounds in the past 3 to 4 months. He has had some leg edema and blisters on his lower extremities and these are being managed by the hotel maintenance technician. The patient also admits to having an occasional cough, but denies any hemoptysis. He has had no fevers or chills and denies nausea, vomiting or aspiration. Upon arrival, a chest CT was done, which showed no evidence of pulmonary emboli, but had a 3.5 cm mass in the right upper lobe of the lung, which was suspicious for pneumonia and/or mass. Also, he had another opacity in the left lower lobe just above the diaphragm. The patient is presently comfortable and is not on any oxygen and maintaining his saturation of over 92%. HABITS: The patient smoked 1/2 to 1 pack per day for over 60 years. Alcohol use in the past, but not recently. PAST MEDICAL HISTORY: Has included history of myocardial infarct, history of hypertension and atrial fibrillation and history of diabetes mellitus, history for lesions in both lungs. He has had CABG x3 and cardiac catheterizations done in the past. ALLERGIES: NO SIGNIFICANT DRUG ALLERGIES. MEDICATIONS: List was reviewed. 1. Clonidine 0.2 mg every 6 hours p.r.n. 2. Zithromax 500 mg daily. 3. Amlodipine 10 mg daily 4. Haldol 1 mg q.2 hours p.r.n. 5. Decadron 4 mg p.o. b.i.d. 6. Hydralazine 10 mg q.6 p.r.n. 7. Eliquis 2.5 mg b.i.d. 8. Doxazosin 4 mg daily. 9. Levothyroxine 75 mcg a day 10. Metoprolol 50 mg b.i.d. 11. Lisinopril 20 mg a day. REVIEW OF SYSTEMS: The patient has lost weight. He has leg edema. He has blisters on his skin. He has dizzy attacks, postnasal drip. He has wheezing, chest congestion. He has some abdominal discomfort and urinary frequency. Denies anxiety or depression, but has some weakness of extremities. FAMILY HISTORY: Noncontributory. PHYSICAL EXAMINATION: GENERAL: This is a thinly built, elderly man who is pale and dyspneic at rest. VITAL SIGNS: Blood pressure is 178/70, pulse is 85, respirations 20, temperature 98.2. HEENT: Head is normocephalic. Pupils are reactive. Sclerae were clear. Throat is clear. Ears - No inflammation. NECK: Supple. No venous distention. Trachea midline. CHEST: Decreased excursions. Breath sounds are diminished at the periphery with occasional wheezes bilaterally. No crackles on either side. HEART: Sounds are regular S1 and S2. No murmur. No S3. ABDOMEN: Soft, nontender. Bowel sounds are active. Liver edge is just felt below the costal margin. Bowel sounds are active. EXTREMITIES: 2+ edema, more on the right leg. Pemphigoid blisters on the lower extremity with weeping ulcerations. Peripheral pulses are not felt. The patient does move his extremities. NEUROLOGIC: 1+ reflexes with no gross motor deficits. IMPRESSION: 1. Bilateral lung lesions, rule out malignancy versus atypical pneumonia. 2. Chronic obstructive pulmonary disease with emphysema. 3. Edema of lower extremities. 4. History of coronary artery disease and history of coronary artery bypass graft. 5. Anemia of chronic disease. PLAN: The patient will need to go for a CT-guided needle biopsy of the lung lesion. A CT scan of the abdomen is pending. We will add DuoNeb nebulizer q.i.d. A bedside pulmonary function study will be done with bronchodilators and a sputum sent for Gram stain and culture. Further evaluation will depend on the results of the biopsy. Oxygen supplementations will be added as needed to maintain saturations greater than 92. Thank you, Dr. Benedict, for this consultation. Marcos Houston MD VJD/ , 07:03 PM , 07:39 PM
[2017-12-24 20:29] LABS: % Iron Saturation 17.7 % (20-50)
[2017-12-24] MEDS: Sod Chloride 0.9% Inj 1,000 ML IV.CONT SCH (20:29)
[2017-12-24] MEDS: Insulin NovoLOG Aspart Correctional Sugar Inj SQ SCH ×2 (20:50→23:27)
[2017-12-24 23:06] LABS: Hematocrit 25.1 % (39.0-51.0); Hemoglobin 8.5 gm/dL (13.0-17.0)
[2017-12-24] MEDS: Azithromycin 250 MG Tablet PO SCH (23:22)
[2017-12-25] MEDS: Levothyroxine 75 MCG Tablet PO SCH (05:27)
[2017-12-25 06:48] LABS: Baso % (Auto) 0.4 % (0.0-2.0); Eos # (Auto) 0.1 th/mm3 (0.0-0.4); Hematocrit 25.3 % (39.0-51.0); Hemoglobin 8.5 gm/dL (13.0-17.0); Lymph # (Auto) 1.8 th/mm3 (1.0-4.8); Lymph % (Auto) 16.3 % (9.0-44.0); Mean Corpuscular HGB Conc 33.4 % (32.0-36.0); Mean Corpuscular Volume 89.9 fL (80.0-100.0); Mono % (Auto) 8.5 % (0.0-8.0); Neut # (Auto) 8.3 th/mm3 (1.8-7.7); Neut % (Auto) 73.8 % (16.0-70.0); Platelet Count 370 th/mm3 (150-450); Red Blood Count 2.82 mil/mm3 (4.50-5.90); White Blood Count 11.2 th/mm3 (4.0-11.0)
[2017-12-25 07:17] LABS: Albumin 1.8 g/dL (3.4-5.0); Calcium 7.4 mg/dL (8.5-10.1); Carbon Dioxide 21.1 meq/L (21.0-32.0); Potassium 4.1 meq/L (3.5-5.1)
[2017-12-25 07:24] LABS: Total Protein 5.5 g/dL (6.4-8.2)
--- NOTE | 2017-12-25 09:46 | P.PNCA ---
Subjective Interval history: No chest pain Physical Exam Vital signs: Vital Signs 12/24/17 13:37 12/24/17 14:03 12/24/17 16:00 Temperature 98.1 F 98.3 F 99.1 F Pulse Rate 71 64 67 Respiratory Rate 18 14 18 Blood Pressure 172/78 H 185/83 H 224/88 H Pulse Oximetry 99 99 100 12/24/17 17:25 12/24/17 20:00 12/24/17 21:59 Temperature 98.2 F Pulse Rate 85 81 Respiratory Rate 18 18 Blood Pressure 151/75 H 110/63 Pulse Oximetry 99 100 12/24/17 23:59 12/25/17 04:00 Temperature 98.6 F 97.8 F Pulse Rate 93 H 110 H Respiratory Rate 16 16 Blood Pressure 131/65 135/60 Pulse Oximetry 94 L 100 Intake & Output 12/24/17 12/25/17 12/25/17 18:59 06:59 18:59 Intake Total 820 / 820 Balance 820 / 820 Intake: IV 500 / 500 Oral 320 / 320 Narrative: Curled up in bed on his right side Awake, no acute distress Chest diminished BS CV S1S2 RRR with 1/[address] edema Assessment and Plan - Assessment (1) Lung mass Code(s): R91.8 - Other nonspecific abnormal finding of lung field Status: Acute (2) Anemia Code(s): D64.9 - Anemia, unspecified Status: Acute (3) Hypertension Code(s): I10 - Essential (primary) hypertension Status: Acute - Plan I recommend medical therapy. Cardiolofy available but will not be rounding daily - call [facility] if CV help needed.
[2017-12-25] MEDS: Sod Chloride 0.9% Inj 1,000 ML IV.CONT SCH ×2 (09:55→18:38)
[2017-12-25] MEDS: amLODIPine 10 MG Tablet PO SCH (09:55)
[2017-12-25] MEDS: Metoprolol Tartrate 50 MG Tablet PO SCH ×2 (09:55→20:22)
[2017-12-25] MEDS: Doxazosin 4 MG Tablet PO SCH (09:55)
[2017-12-25] MEDS: Azithromycin 250 MG Tablet PO SCH (09:55)
[2017-12-25] MEDS: Insulin NovoLOG Aspart Correctional Sugar Inj SQ SCH ×4 (09:57→23:17)
[2017-12-25 12:28] LABS: Hemoglobin A1c 5.3 % (4.3-6.0)
--- NOTE | 2017-12-25 12:41 | P.PNIM ---
Subjective Interval history: Patient is upset because he has been n.p.o. Otherwise he has no new complaints. Physical Exam Vital signs: Vital Signs 12/24/17 13:37 12/24/17 14:03 12/24/17 16:00 Temperature 98.1 F 98.3 F 99.1 F Pulse Rate 71 64 67 Respiratory Rate 18 14 18 Blood Pressure 172/78 H 185/83 H 224/88 H Pulse Oximetry 99 99 100 12/24/17 17:25 12/24/17 20:00 12/24/17 21:59 Temperature 98.2 F Pulse Rate 85 81 Respiratory Rate 18 18 Blood Pressure 151/75 H 110/63 Pulse Oximetry 99 100 12/24/17 23:59 12/25/17 04:00 12/25/17 09:00 Temperature 98.6 F 97.8 F 98.7 F Pulse Rate 93 H 110 H 90 Respiratory Rate 16 16 20 Blood Pressure 131/65 135/60 174/79 H Pulse Oximetry 94 L 100 Intake & Output 12/24/17 12/25/17 12/25/17 18:59 06:59 18:59 Intake Total 820 / 820 1000 / 1000 Balance 820 / 820 1000 / 1000 Intake: IV 500 / 500 1000 / 1000 NS Inj 1,000 ML @ 84 mls/hr IV. 1000 / 1000 CONT .[id number] [facility] Rx#:[id number] Oral 320 / 320 Narrative: GENERAL: Patient appear frail CARDIOVASCULAR: Normal rate and regular rhythm without murmurs, gallops, or rubs. RESPIRATORY: Markedly diminished breath sounds at the bases. Otherwise mostly clear to auscultation. GASTROINTESTINAL: Abdomen soft, non-tender, non-distended. Normal active bowel sounds MUSCULOSKELETAL: Bilateral lower extremities wrapped with intact dressings. NEURO: Alert & Oriented x4 to person, place, time, situation. PSYCH: Irritable mood Results - Labs CBC & Chem 7: 12/25/17 05:37 12/25/17 05:37 Laboratory Results - last 24 hr 12/24/17 12/24/17 12/24/17 07:30 07:30 07:30 WBC RBC Hgb Hct MCV MCH MCHC RDW Plt Count MPV Neut % (Auto) Lymph % (Auto) [place] % (Auto) Eos % (Auto) Baso % (Auto) Neut # (Auto) Lymph # (Auto) [place] # (Auto) Eos # (Auto) Baso # (Auto) WBC Differential Differential Comment Sodium Potassium Chloride Carbon Dioxide Anion Gap BUN Creatinine Estimated GFR POC Glucose Random Glucose Calcium Prot Corrected Calcium Iron 35 L TIBC 197 L % Saturation 17.7 L Ferritin 443 H Total Bilirubin AST ALT Alkaline Phosphatase Total Protein Albumin Vitamin B12 257 Folate 13.5 12/24/17 12/24/17 12/24/17 17:51 22:40 23:23 WBC RBC Hgb 8.5 L Hct 25.1 L MCV MCH MCHC RDW Plt Count MPV Neut % (Auto) Lymph % (Auto) [place] % (Auto) Eos % (Auto) Baso % (Auto) Neut # (Auto) Lymph # (Auto) [place] # (Auto) Eos # (Auto) Baso # (Auto) WBC Differential Differential Comment Sodium Potassium Chloride Carbon Dioxide Anion Gap BUN Creatinine Estimated GFR POC Glucose 97 137 H Random Glucose Calcium Prot Corrected Calcium Iron TIBC % Saturation Ferritin Total Bilirubin AST ALT Alkaline Phosphatase Total Protein Albumin Vitamin B12 Folate 12/25/17 12/25/17 12/25/17 05:37 05:37 09:03 WBC 11.2 H RBC 2.82 L Hgb 8.5 L Hct 25.3 L MCV 89.9 MCH 30.0 MCHC 33.4 RDW 15.0 Plt Count 370 MPV 7.0 Neut % (Auto) 73.8 H Lymph % (Auto) 16.3 [place] % (Auto) 8.5 H Eos % (Auto) 1.0 Baso % (Auto) 0.4 Neut # (Auto) 8.3 H Lymph # (Auto) 1.8 [place] # (Auto) 1.0 H Eos # (Auto) 0.1 Baso # (Auto) 0.0 WBC Differential . Differential Comment Auto diff final Sodium 138 Potassium 4.1 D Chloride 105 Carbon Dioxide 21.1 Anion Gap 12 BUN 31 H Creatinine 1.42 H Estimated GFR 48 L POC Glucose 135 H Random Glucose 114 H Calcium 7.4 L* Prot Corrected Calcium 8.3 L Iron TIBC % Saturation Ferritin Total Bilirubin 0.3 AST 21 ALT 15 Alkaline Phosphatase 58 Total Protein 5.5 L D Albumin 1.8 L Vitamin B12 Folate - Imaging Impressions Abdomen/Pelvis CT 12/24/17 00:00 CONCLUSION: 1. No definite suspicious CT findings in the abdomen or pelvis. 2. Severe atherosclerotic vascular disease. 3. Dilated urinary bladder. Assessment and Plan - Assessment (1) Chest pain Code(s): R07.9 - Chest pain, unspecified Status: Acute (2) Lung mass Code(s): R91.8 - Other nonspecific abnormal finding of lung field Status: Acute (3) Anemia Code(s): D64.9 - Anemia, unspecified Status: Acute (4) Diabetes Code(s): E11.9 - Type 2 diabetes mellitus without complications Status: Acute (5) Hypertension Code(s): I10 - Essential (primary) hypertension Status: Acute - Plan 77-year-old male with Chest pain: hx of [place] status post bypass surgery,History of bypass surgery. -Cardiology following. Continue medical management for now given findings of lung mass and anemia. Lung mass: - CT-guided biopsy pending. -Pain control - Pulmonology following as well. Continue supplemental oxygen. -Currently on Rocephin and azithromycin due to concern for infectious process. Continue antibiotics for now. Reevaluate tomorrow. diabetes: low dose ISS, monitor BS closely. check HbA1C anemia: hb 8.6. No baseline Hb noted. Pt denied any bleeding. Follow H&H. HTN: Blood pressure better today. Continue amlodipine and metoprolol. clonidine prn MOUNA:baseline unknown. gentle IV hydration. repeat in AM bullous pemphigoid: open wounds over lower ext. wound care consulted. Appreciate assistance atrial fibrillation: on BB. Eliquis on hold. Biopsy pending DVT proph: SCDs. Eliquis on hold. Admit to inpatient. Ongoing malignancy workup. Will likely need SNF on discharge. (1) Chest pain Qualifiers: Chest pain type: precordial pain Qualified Code(s): R07.2 - Precordial pain
[2017-12-25 14:10] LABS: Hematocrit 23.5 % (39.0-51.0); Hemoglobin 7.9 gm/dL (13.0-17.0)
[2017-12-25] MEDS ORDERED: fentaNYL Citrate Inj 100 MCG/2 ML Ampul ONE (14:12)
--- NOTE | 2017-12-25 14:55 | P.RAD ---
Post CT Procedure Prog Note - Pre Procedure Diagnosis (1) Lung mass - Post Procedure Diagnosis (1) Lung mass - Procedure Information Supervising Radiologist: Simba Hutson MD Anesthesia: Local, Conscious Sedation - Plan of Activity Patient to Unit: Nursing Unit Patient condition: Fair See PACS Report for procedural detail/treatment. Biopsy CT right Lung Specimen: Core Biopsy
--- NOTE | 2017-12-25 15:45 | P.PNWCN ---
Wound Care Nurse Consult Description: Received wound management consult from Doctor Benedict for lower extremities. Communicated with: Doctor Benedict and EFREN Salinas Recommendation: Bilateral feet open bullae 1.Please cleanse open bullae to bilateral feet with normal saline or wound cleanser and pat dry. 2. Apply Xeroform in a single layer over open wounds only avoiding intact skin and cover with dry 4x4 gauze, and ABD pads. 3. Secure dressing with rolled gauze and tape. Change dressings every other day or PRN if saturated or dislodged. L heel pressure unstageable pressure injury 1. Please apply skin barrier film (skin prep) to L heel wound BID and leave open to air. 2. Apply heel raiser boots to offload pressure from heels. Additional information: Patient seen in CDU F pod for evaluation of lower extremities wound management. Removed dressings in place to reveal multiple unroofed bullae to bilateral feet. Wound descriptions noted below. Cleansed all unroofed bullae with normal saline and applied Xeroform gauze in a single layer just over open wounds avoiding intact skin. Covered toes and deflated roofed bulla with dry 4x4 gauze pads. Applied ABd pads as secondary dressing over Xeroform. Secured all dressings with rolled gauze and tape. L heel pressure injury noted below was left open to air. Applied Cavilon skin barrier film to wound and left open to air. Wound/Pressure Injury - Patient Status Premedicated for Pain Prior to Dressing Change: No - Wound Left Foot Wound Assessment: Ongoing Wound Type: Blister Requested from Provider a Wound Care Consult: Yes Wound Bed Appearance: Multiple unroofed bullae to L foot revealing ~70% pink tissue and ~30% yellow tissue that is moist Surrounding Tissue Appearance: [place]aut Surrounding Tissue Temperature: Warm Drainage Description: Serous Drainage Amount: Minimal Drainage Odor: No Odor Dressing Status: Changed Cleansing Solution: Saline Primary Dressing: Xeroform Cover Dressing: Absorbant pad secured with rolled gauze Tape Type: Transparent Wound Dressing Change Date: 12/25/17 Right Foot Wound Assessment: Ongoing Wound Type: Blister Is This a Chronic Wound: No Requested from Provider a Wound Care Consult: Yes Wound Bed Appearance: three unroofed bullae and one roofed deflated bulla. Unroofed bullae present with ~50% pink tissue and ~50% yellow tissue. Surrounding Tissue Appearance: [place], Taut Surrounding Tissue Temperature: Warm Drainage Description: Serous Drainage Amount: Minimal Drainage Odor: No Odor Dressing Status: Changed Cleansing Solution: Saline Primary Dressing: Xeroform Cover Dressing: Absorbant pad secured with rolled gauze Tape Type: Transparent Wound Dressing Change Date: 12/25/17 Left Heel Wound Staging: Unstageable Wound Assessment: Ongoing Wound Type: Pressure Injury Is This a Chronic Wound: No Requested from Provider a Wound Care Consult: Yes (Wound care saw today) Length: 3 (cm) Width: 2 (cm) Depth: 0 (slough) Wound Bed Appearance: Necrotic, Yellow Wound Bed Appearance: Wound bed presents with 100% dry brown/ yellow necrotic tissue that is non draining and appears to be dry stable eschar. Surrounding Tissue Appearance: [place] Surrounding Tissue Temperature: Warm Drainage Amount: None Dressing Status: Open to Air Topical: skin barrier film applied Incision - Patient Status Premedicated for Pain Prior to Dressing Change: No
--- NOTE | 2017-12-25 15:50 | XR ---
EXAM DATE: 12/25/2017 3:35 PM EDT AGE/SEX: 77 years / Male INDICATIONS: Post right lung biopsy. CLINICAL DATA: This is the patient's initial encounter. Patient reports that signs and symptoms have been present for 1 day and indicates a pain score of 0/10. MEDICAL/SURGICAL HISTORY: Cardiovascular disease. Hypertension. None. COMPARISON: [facility] [place], CT BIOPSY LUNG RIGHT, 12/25/2017. . FINDINGS: Status post recent right lung biopsy. No evidence of pneumothorax. There is a mass in the right upper lung. The left lung is grossly clear. There are old left-sided rib fractures. There is evidence of p revious cardiothoracic surgery. The heart size is within normal limits. No definite pleural effusions . CONCLUSION: No evidence of pneumothorax. Electronically signed by: Filiberto Mascorro MD 12/25/2017 3:49 PM EDT
--- NOTE | 2017-12-25 16:08 | CT ---
EXAM DATE: 12/25/2017 3:05 PM EDT AGE/SEX: 77 years / Male INDICATIONS: Right lung mass. CLINICAL DATA: This is the patient's initial encounter. Patient reports that signs and symptoms have been present for 1 day and indicates a pain score of 0/10. MEDICAL/SURGICAL HISTORY: Cardiovascular disease. Diabetes. Hypertension. Atrial fibrillatio n. CABG. COMPARISON: [facility], [facility] PULMONARY W CONTRAST W 3D, 12/24/2017. . SEDATION TIME (min): 30 BIOPSY SITE: Right lung MEDICATION(S): 2 MG midazolam (Versed) IV 100 mcg fentanyl (Sublimaze) IV DEVICE(S): 19 gauge Introducer 20 gauge BARD biopsy needle . . PROCEDURE: CT guided Right lung biopsy Prior to the procedure informed consent was obtained. Any appropriate prior imaging studies were rev iewed. Using automated exposure control and adjustment of the mA and/or kV according to patient size , radiation dose was kept as low as reasonably achievable to obtain optimal diagnostic quality images . DICOM format image data is available electronically for review and comparison. The site was prepped in a sterile fashion. Full sterile technique was used, including cap, mask, danilo rile gloves and gown and a large sterile sheet. Hand hygiene and 2% chlorhexidine and/or betadine/al cohol prep was utilized per protocol for cutaneous antisepsis. The skin and subcutaneous tissues wer e infiltrated with local anesthetic solution. With CT guidance the previously identified target was localized. Biopsy was performed using the presc ribed needle as above. Adequate hemostasis was obtained with compression at the puncture site. Follow-up CT scan reveals no pneumothorax. Conscious sedation was performed with the prescribed dosages and duration as above in the presence of an independent trained radiology nurse to assist in the monitoring of the patient. EKG and oximetry remained stable throughout the procedure. The patient tolerated the procedure well and there were no complications. The patient was sent to Radiology Outpatient Unit in stable condition. CONCLUSION: Uncomplicated CT guided biopsy of right upper lobe pulmonary mass.. Electronically signed by: Simba Hutson MD 12/25/2017 4:06 PM EDT
--- NOTE | 2017-12-25 17:26 | P.PN ---
Subjective Interval history: He went for a CT needle biopsy of the right lung mass. Off O2 Sat 96. CXR showed no pneumothorax. Physical Exam Vital signs: Vital Signs 12/24/17 17:25 12/24/17 20:00 12/24/17 21:59 Temperature 98.2 F Pulse Rate 85 81 Respiratory Rate 18 18 Blood Pressure 151/75 H 110/63 Pulse Oximetry 99 100 12/24/17 23:59 12/25/17 04:00 12/25/17 09:00 Temperature 98.6 F 97.8 F 98.7 F Pulse Rate 93 H 110 H 90 Respiratory Rate 16 16 20 Blood Pressure 131/65 135/60 174/79 H Pulse Oximetry 94 L 100 12/25/17 14:55 12/25/17 15:12 12/25/17 15:40 Temperature 98.1 F Pulse Rate 71 75 74 Respiratory Rate 16 16 16 Blood Pressure 145/70 H 150/67 H 138/69 Pulse Oximetry 98 99 99 12/25/17 16:13 Temperature Pulse Rate 72 Respiratory Rate 16 Blood Pressure 139/68 Pulse Oximetry 99 Intake & Output 12/24/17 12/25/17 12/25/17 18:59 06:59 18:59 Intake Total 820 / 820 1000 / 1000 Balance 820 / 820 1000 / 1000 Intake: IV 500 / 500 1000 / 1000 NS Inj 1,000 ML @ 84 mls/hr IV. 1000 / 1000 CONT .[id number] [facility] Rx#:[id number] Oral 320 / 320 Narrative: GENERAL: Alert and in No distress SKIN: Warm and dry. HEAD: Normocephalic.Throat clear. EYES: No scleral icterus. No injection or drainage. NECK: Supple, trachea midline. No JVD or lymphadenopathy. CARDIOVASCULAR: Regular rate and rhythm without murmurs, gallops, or rubs. RESPIRATORY: Breath sounds equal bilaterally. No accessory muscle use.Has some wheezes scattered GASTROINTESTINAL: Abdomen soft, non-tender, nondistended. MUSCULOSKELETAL: No cyanosis, or edema. Neuro: No gross deficits. BACK: Nontender without obvious deformity. No CVA tenderness. Results - Labs CBC & Chem 7: 12/25/17 13:20 12/25/17 05:37 Laboratory Results - last 24 hr 12/24/17 12/24/17 12/24/17 07:30 07:30 07:30 WBC RBC Hgb Hct MCV MCH MCHC RDW Plt Count MPV Neut % (Auto) Lymph % (Auto) [place] % (Auto) Eos % (Auto) Baso % (Auto) Neut # (Auto) Lymph # (Auto) [place] # (Auto) Eos # (Auto) Baso # (Auto) WBC Differential Differential Comment Sodium Potassium Chloride Carbon Dioxide Anion Gap BUN Creatinine Estimated GFR POC Glucose Random Glucose Hemoglobin A1c Calcium Prot Corrected Calcium Iron 35 L TIBC 197 L % Saturation 17.7 L Ferritin 443 H Total Bilirubin AST ALT Alkaline Phosphatase Total Protein Albumin Vitamin B12 257 Folate 13.5 12/24/17 12/24/17 12/24/17 17:51 22:40 22:40 WBC RBC Hgb 8.5 L Hct 25.1 L MCV MCH MCHC RDW Plt Count MPV Neut % (Auto) Lymph % (Auto) [place] % (Auto) Eos % (Auto) Baso % (Auto) Neut # (Auto) Lymph # (Auto) [place] # (Auto) Eos # (Auto) Baso # (Auto) WBC Differential Differential Comment Sodium Potassium Chloride Carbon Dioxide Anion Gap BUN Creatinine Estimated GFR POC Glucose 97 Random Glucose Hemoglobin A1c 5.3 Calcium Prot Corrected Calcium Iron TIBC % Saturation Ferritin Total Bilirubin AST ALT Alkaline Phosphatase Total Protein Albumin Vitamin B12 Folate 12/24/17 12/25/17 12/25/17 23:23 05:37 05:37 WBC 11.2 H RBC 2.82 L Hgb 8.5 L Hct 25.3 L MCV 89.9 MCH 30.0 MCHC 33.4 RDW 15.0 Plt Count 370 MPV 7.0 Neut % (Auto) 73.8 H Lymph % (Auto) 16.3 [place] % (Auto) 8.5 H Eos % (Auto) 1.0 Baso % (Auto) 0.4 Neut # (Auto) 8.3 H Lymph # (Auto) 1.8 [place] # (Auto) 1.0 H Eos # (Auto) 0.1 Baso # (Auto) 0.0 WBC Differential . Differential Comment Auto diff final Sodium 138 Potassium 4.1 D Chloride 105 Carbon Dioxide 21.1 Anion Gap 12 BUN 31 H Creatinine 1.42 H Estimated GFR 48 L POC Glucose 137 H Random Glucose 114 H Hemoglobin A1c Calcium 7.4 L* Prot Corrected Calcium 8.3 L Iron TIBC % Saturation Ferritin Total Bilirubin 0.3 AST 21 ALT 15 Alkaline Phosphatase 58 Total Protein 5.5 L D Albumin 1.8 L Vitamin B12 Folate 12/25/17 12/25/17 09:03 13:20 WBC RBC Hgb 7.9 L Hct 23.5 L MCV MCH MCHC RDW Plt Count MPV Neut % (Auto) Lymph % (Auto) [place] % (Auto) Eos % (Auto) Baso % (Auto) Neut # (Auto) Lymph # (Auto) [place] # (Auto) Eos # (Auto) Baso # (Auto) WBC Differential Differential Comment Sodium Potassium Chloride Carbon Dioxide Anion Gap BUN Creatinine Estimated GFR POC Glucose 135 H Random Glucose Hemoglobin A1c Calcium Prot Corrected Calcium Iron TIBC % Saturation Ferritin Total Bilirubin AST ALT Alkaline Phosphatase Total Protein Albumin Vitamin B12 Folate - Imaging Impressions Abdomen/Pelvis CT 12/24/17 00:00 CONCLUSION: 1. No definite suspicious CT findings in the abdomen or pelvis. 2. Severe atherosclerotic vascular disease. 3. Dilated urinary bladder. Chest X-Ray 12/25/17 00:00 CONCLUSION: No evidence of pneumothorax. Lung Biopsy CT 12/25/17 00:00 CONCLUSION: Uncomplicated CT guided biopsy of right upper lobe pulmonary mass.. Assessment and Plan - Assessment (1) COPD (chronic obstructive pulmonary disease) with chronic bronchitis Code(s): J44.9 - Chronic obstructive pulmonary disease, unspecified Status: Acute (2) Mass of lung parenchyma Code(s): R91.8 - Other nonspecific abnormal finding of lung field Status: Acute (3) Chest pain Code(s): R07.9 - Chest pain, unspecified Status: Acute (4) Lung mass Code(s): R91.8 - Other nonspecific abnormal finding of lung field Status: Acute (5) Anemia Code(s): D64.9 - Anemia, unspecified Status: Acute (6) Diabetes Code(s): E11.9 - Type 2 diabetes mellitus without complications Status: Acute (7) Hypertension Code(s): I10 - Essential (primary) hypertension Status: Acute - Plan 1. Chest X ray in am. 2. O2 2 L PRN 3. Duoneb nebs qid. 4. Continue Symbicort 160/4.5 mcg 2 puffs bid 5. PFT with bronchodilator 6. Cont Antibiotics as ordered (3) Chest pain Qualifiers: Chest pain type: precordial pain Qualified Code(s): R07.2 - Precordial pain
[2017-12-26] MEDS: Sod Chloride 0.9% Inj 1,000 ML IV.CONT SCH (06:14)
[2017-12-26] MEDS: Levothyroxine 75 MCG Tablet PO SCH (06:14)
[2017-12-26] MEDS: Metoprolol Tartrate 50 MG Tablet PO SCH (09:09)
[2017-12-26] MEDS: Azithromycin 250 MG Tablet PO SCH (09:09)
[2017-12-26] MEDS: Insulin NovoLOG Aspart Correctional Sugar Inj SQ SCH ×2 (09:10→13:55)
[2017-12-26] MEDS: amLODIPine 10 MG Tablet PO SCH (09:10)
[2017-12-26] MEDS: Doxazosin 4 MG Tablet PO SCH (09:10)
[2017-12-26 09:22] LABS: Hemoglobin 8.2 gm/dL (13.0-17.0); Mean Corpuscular HGB Conc 34.2 % (32.0-36.0); Mean Corpuscular Hemoglobin 30.4 pg (27.0-34.0); Mean Corpuscular Volume 88.9 fL (80.0-100.0); Platelet Count 362 th/mm3 (150-450); Red Cell Distribution Width 15.2 % (11.6-17.2); White Blood Count 9.3 th/mm3 (4.0-11.0)
--- NOTE | 2017-12-26 10:07 | XR ---
EXAM DATE: 12/26/2017 10:04 AM EDT AGE/SEX: 77 years / Male INDICATIONS: S/P lung biopsy. CLINICAL DATA: This is the patient's subsequent encounter. Patient reports that signs and symptoms h ave been present for 1 day and indicates a pain score of 0/10. MEDICAL/SURGICAL HISTORY: . Cardiovascular disease. Hypertension. None. [place] [facility] [place]. . FINDINGS: A single AP view of the chest demonstrates right basilar density. Opacity is again seen within the ri ght upper lobe. Left lung clear. Status post CABG The cardiomediastinal contours are unremarkable. O sseous structures are intact. CONCLUSION: Right basilar density. No pneumothorax. Electronically signed by: Abhay Braga MD 12/26/2017 10:06 AM EDT
--- NOTE | 2017-12-26 11:48 | P.PNIM ---
Subjective Interval history: Patient reports he is feeling better today. Breathing comfortably. No chest pain. Physical Exam Vital signs: Vital Signs 12/25/17 14:55 12/25/17 15:12 12/25/17 15:40 Temperature 98.1 F Pulse Rate 71 75 74 Respiratory Rate 16 16 16 Blood Pressure 145/70 H 150/67 H 138/69 Pulse Oximetry 98 99 99 12/25/17 16:13 12/25/17 19:11 12/25/17 20:27 Temperature 98.6 F Pulse Rate 72 88 Respiratory Rate 16 16 Blood Pressure 139/68 129/60 Pulse Oximetry 99 97 97 12/26/17 00:06 12/26/17 00:17 12/26/17 03:45 Temperature 98.6 F 98.2 F Pulse Rate 69 78 72 Respiratory Rate 16 16 Blood Pressure 128/60 174/79 H Pulse Oximetry 99 98 12/26/17 07:27 12/26/17 08:00 12/26/17 08:51 Temperature 97.9 F Pulse Rate 70 78 78 Respiratory Rate 14 18 Blood Pressure 156/67 H Pulse Oximetry 96 12/26/17 09:00 Temperature 97.9 F Pulse Rate 78 Respiratory Rate 18 Blood Pressure 156/67 H Pulse Oximetry 97 Intake & Output 12/25/17 12/26/17 12/26/17 18:59 06:59 18:59 Intake Total 1000 / 1000 1100 / 1100 Balance 1000 / 1000 1100 / 1100 Intake: IV 1000 / 1000 1100 / 1100 NS Inj 1,000 ML @ 84 mls/hr IV. 1000 / 1000 1000 / 1000 CONT .[id number] [facility] Rx#:[id number] Rocephin Inj 1,000 MG In NS Inj 100 / 100 100 ML @ 200 mls/hr IV.SIG Q24H MAXIMILIAN Rx#:[id number] Narrative: GENERAL: Patient appear frail CARDIOVASCULAR: Normal rate and regular rhythm without murmurs, gallops, or rubs. RESPIRATORY: Markedly diminished breath sounds at the bases. Otherwise mostly clear to auscultation. GASTROINTESTINAL: Abdomen soft, non-tender, non-distended. Normal active bowel sounds MUSCULOSKELETAL: Bilateral lower extremities wrapped with intact dressings. NEURO: Alert & Oriented x4 to person, place, time, situation. Results - Labs CBC & Chem 7: 12/26/17 07:20 07/06/18 05:37 Laboratory Results - last 24 hr 12/24/17 12/25/17 12/25/17 22:40 13:20 23:01 WBC RBC Hgb 7.9 L Hct 23.5 L MCV MCH MCHC RDW Plt Count MPV POC Glucose 112 H Hemoglobin A1c 5.3 12/26/17 12/26/17 07:20 09:08 WBC 9.3 RBC 2.70 L Hgb 8.2 L Hct 24.0 L MCV 88.9 MCH 30.4 MCHC 34.2 RDW 15.2 Plt Count 362 MPV 7.0 POC Glucose 148 H Hemoglobin A1c - Imaging Impressions Chest X-Ray 12/25/17 00:00 CONCLUSION: No evidence of pneumothorax. Lung Biopsy CT 12/25/17 00:00 CONCLUSION: Uncomplicated CT guided biopsy of right upper lobe pulmonary mass.. Chest X-Ray 12/26/17 00:00 CONCLUSION: Right basilar density. No pneumothorax. Assessment and Plan - Assessment (1) Chest pain Code(s): R07.9 - Chest pain, unspecified Status: Acute (2) Lung mass Code(s): R91.8 - Other nonspecific abnormal finding of lung field Status: Acute (3) Anemia Code(s): D64.9 - Anemia, unspecified Status: Acute (4) Diabetes Code(s): E11.9 - Type 2 diabetes mellitus without complications Status: Acute (5) Hypertension Code(s): I10 - Essential (primary) hypertension Status: Acute - Plan 77-year-old male with Chest pain: hx of [place] status post bypass surgery,History of bypass surgery. -Cardiology following. Continue medical management for now given findings of lung mass and anemia. -2D echocardiogram pending Lung mass: - CT-guided biopsy pending. -Pain control - Pulmonology following as well. Continue supplemental oxygen. -Currently on Rocephin and azithromycin due to concern for infectious process. Continue antibiotics for now. Plan to transition to oral antibiotics tomorrow. diabetes: low dose ISS, monitor BS closely. HbA1C P anemia: hb stable. No baseline Hb noted. Pt denied any bleeding. Follow H&H. HTN: Blood pressure better. Continue amlodipine and metoprolol. clonidine prn MOUNA:baseline unknown. gentle IV hydration. repeat in AM bullous pemphigoid: open wounds over lower ext. wound care following. Appreciate assistance atrial fibrillation: on BB. Resume Eliquis DVT proph: SCDs. Eliquis. Will likely need SNF on discharge. Follow up 2D echo. (1) Chest pain Qualifiers: Chest pain type: precordial pain Qualified Code(s): R07.2 - Precordial pain
--- NOTE | 2017-12-26 16:58 | ECHRPT ---
Indication: Chest Pain CONCLUSIONS The left ventricular systolic function is normal with an estimated ejection fraction of 55%. No de finite wall motion abnormalities. Wall thickness is measured at the upper limits of normal. Normal left ventricular size. The left atrial size is mildly dilated. Mild mitral valve regurgitation. Mild mitral annular calcification. Trileaflet aortic valve. Mild aortic valve sclerosis is present. There is trace tricuspid valve regurgitation. The estimated pulmonary arterial pressure is 35 mmHg. BP: / HR: Rhythm: MEASUREMENTS (Male / Female) Normal Values Technical Quality:Technically difficult study 2D ECHO LV Diastolic Diameter PLAX 4.3 cm 4.2 - 5.9 / 3.9 - 5.3 cm LV Systolic Diameter PLAX 3.5 cm IVS Diastolic Thickness 1.0 cm 0.6 - 1.0 / 0.6 - 0.9 cm LVPW Diastolic Thickness 1.0 cm 0.6 - 1.0 / 0.6 - 0.9 cm LV Relative Wall Thickness 0.5 RV Internal Dim ED PLAX 3.1 cm LVOT Diameter 1.9 cm LA Systolic Diameter LX 4.4 cm 3.0 - 4.0 / 2.7 - 3.8 cm M-MODE Aortic Root Diameter MM 3.1 cm LA Systolic Diameter MM 3.1 cm LA Ao Ratio MM 1.0 AV Cusp Separation MM 1.1 cm DOPPLER AV Peak Velocity 161.0 cm/s AV Peak Gradient 10.4 mmHg AV Mean Gradient 6.0 mmHg AV Velocity Time Integral 38.7 cm LVOT Peak Velocity 84.2 cm/s LVOT Peak Gradient 2.8 mmHg LVOT Velocity Time Integral 21.3 cm AV Area Cont Eq vti 1.6 cm AV Area Cont Eq pk 1.5 cm MV Area PHT 2.0 cm Mitral E Point Velocity 79.0 cm/s Mitral A Point Velocity 60.7 cm/s Mitral E to A Ratio 1.3 LV E' Lateral Velocity 6.0 cm/s Mitral E to LV E' Lateral Ratio 13.1 LV E' Septal Velocity 8.3 cm/s Mitral E to LV E' Septal Ratio 9.5 TR Peak Velocity 270.0 cm/s TR Peak Gradient 29.2 mmHg Right Atrial Pressure 10.0 mmHg Pulmonary Artery Systolic Pressu 39.2 mmHg Right Ventricular Systolic Press 39.2 mmHg FINDINGS LEFT VENTRICLE The left ventricular systolic function is normal with an estimated ejection fraction of 55%. No de finite wall motion abnormalities. Wall thickness is measured at the upper limits of normal. Normal left ventricular size. RIGHT VENTRICLE Normal right ventricular size and systolic function. LEFT ATRIUM The left atrial size is mildly dilated. RIGHT ATRIUM The right atrial size is normal. ATRIAL SEPTUM Normal atrial septal thickness without atrial level shunting by limited color doppler interrogation. AORTA The aortic root and proximal ascending aorta are normal in size on limited imaging. MITRAL VALVE Mild mitral valve regurgitation. Mild mitral annular calcification. AORTIC VALVE Trileaflet aortic valve. Mild aortic valve sclerosis is present. TRICUSPID VALVE Structurally normal tricuspid valve. There is trace tricuspid valve regurgitation. The estimated pulmonary arterial pressure is 35 mmHg. PULMONARY VALVE Trivial pulmonary valve regurgitation. VESSELS The inferior vena cava is normal in size. PERICARDIUM No pericardial effusion. Yosvany Frankel MD (Electronically Signed) Final Date:26 December 2017 16:57
[2017-12-27] MEDS: amLODIPine 10 MG Tablet PO SCH (08:59)
[2017-12-27] MEDS: levoFLOXacin 750 MG Tablet PO SCH (08:59)
[2017-12-27] MEDS: Metoprolol Tartrate 50 MG Tablet PO SCH ×2 (08:59→20:55)
[2017-12-27] MEDS: Doxazosin 4 MG Tablet PO SCH (08:59)
[2017-12-27] MEDS ORDERED: Doxazosin 4 MG Tablet PO SCH (09:00)
--- NOTE | 2017-12-27 10:15 | P.PNONC ---
Subjective Interval history: Afebrile Patient reports his chest pain is improved Denies shortness of breath No other acute complaints Reports he wishes the coffee was hotter in the hospital Objective Vital Signs/Intake & Output: Vital Signs 12/26/17 12:22 12/26/17 14:00 12/26/17 14:01 Temperature 97.8 F Pulse Rate 71 78 Respiratory Rate 19 Blood Pressure 111/73 Pulse Oximetry 99 96 12/26/17 16:00 12/26/17 20:00 12/27/17 00:00 Temperature 97.7 F 98.0 F 98.1 F Pulse Rate 73 81 78 Respiratory Rate 19 18 19 Blood Pressure 123/58 L 135/63 147/67 H Pulse Oximetry 100 99 93 L 12/27/17 04:00 Temperature 98.5 F Pulse Rate 84 Respiratory Rate 18 Blood Pressure 160/69 H Pulse Oximetry 93 L Intake & Output 12/26/17 12/27/17 12/27/17 18:59 06:59 18:59 Intake Total 100 / 100 Balance 100 / 100 Intake: Oral 100 / 100 Other: # Voids 1 2 Date of Last Bowel Movement 12/26/17 # Bowel Movements 2 Result Diagrams: 12/26/17 07:20 12/25/17 05:37 Laboratory Results: Laboratory Results - last 24 hr 12/26/17 12/26/17 12/27/17 13:46 17:23 00:25 POC Glucose 194 H 134 H 125 H Imaging Studies: Impressions Chest X-Ray 12/26/17 00:00 CONCLUSION: Right basilar density. No pneumothorax. Medications: Active Medications Generic Name Dose Route Start Last Admin Trade Name Gideon PRN Reason Stop Dose Admin Amlodipine Besylate 10 mg 12/27/17 09:00 12/27/17 08:59 Norvasc PO 10 mg DAILY [facility] Administration Apixaban 2.5 mg 12/27/17 09:00 12/27/17 08:59 Eliquis PO 2.5 mg BID MAXIMILIAN Administration Aspirin 81 mg 12/27/17 09:00 12/27/17 08:59 Ecotrin PO 81 mg DAILY MAX[facility]ILIAN Administration Doxazosin Mesylate 4 mg 12/27/17 09:00 12/27/17 08:59 Cardura PO 4 mg DAILY MAXIMILIAN Administration Levofloxacin 750 mg 12/27/17 09:00 12/27/17 08:59 Levaquin PO 750 mg DAILY MAX[facility]ILIAN Administration Metoprolol Tartrate 50 mg 12/27/17 09:00 12/27/17 08:59 Lopressor PO 50 mg BID MAXIMILIAN Administration Objective Remarks: GENERAL: Elderly male resting in bed eating breakfast in no obvious distress SKIN: Warm and dry. Dressings covering lower extremities. HEAD: Normocephalic. EYES: No scleral icterus. No injection or drainage. NECK: Supple, trachea midline. No JVD or lymphadenopathy. CARDIOVASCULAR: Regular rate and rhythm without murmurs. RESPIRATORY: Diminished posteriorly. GASTROINTESTINAL: Abdomen soft, non-tender, nondistended. EXTREMITIES: No cyanosis, or edema. Dressings to feet, bilateral lower extremities. MUSCULOSKELETAL: Adequate muscle tone. NEUROLOGICAL: No obvious focal deficit. Awake, alert, and oriented x3. Assessment/Plan - Plan 77 -year-old male with long-standing smoking history. He reportedly quit a few days prior to admission. He has history of CABG. He presented with chest pain. CT angiogram revealed a 3.5 cm mass involving the right upper lobe at the lung concerning for either consolidative pneumonia or neoplasm. The patient had CT-guided biopsy this lesion on December 25. Pathology is pending. 1. Await pathology results 2. Continue supportive care - Attending Statement The exam, history, and the medical decision-making described in the above note were completed with the assistance of the mid-level provider. I reviewed and agree with the findings presented. I attest that I had a [id number] encounter with the patient on the same day, and personally performed and documented my assessment and findings in the medical record. Patient denies any shortness of breath. His chest pain has improved. He had biopsy of the lung mass and pathology is still pending. Continue supportive care. Further recommendation will depend on the tissue diagnosis.
--- NOTE | 2017-12-27 13:09 | P.PNIM ---
Subjective Interval history: Patient reports he is feeling well today. He denies shortness of breath or chest pain. Physical Exam Vital signs: Vital Signs 12/26/17 14:00 12/26/17 14:01 12/26/17 16:00 Temperature 97.8 F 97.7 F Pulse Rate 78 73 Respiratory Rate 19 19 Blood Pressure 111/73 123/58 L Pulse Oximetry 99 96 100 12/26/17 20:00 12/27/17 00:00 12/27/17 04:00 Temperature 98.0 F 98.1 F 98.5 F Pulse Rate 81 78 84 Respiratory Rate 18 19 18 Blood Pressure 135/63 147/67 H 160/69 H Pulse Oximetry 99 93 L 93 L 12/27/17 08:00 Temperature 98.9 F Pulse Rate 80 Respiratory Rate 20 Blood Pressure 171/75 H Pulse Oximetry 95 Intake & Output 12/26/17 12/27/17 12/27/17 18:59 06:59 18:59 Intake Total 100 / 100 480 / 480 Balance 100 / 100 480 / 480 Intake: Oral 100 / 100 480 / 480 Other: # Voids 1 2 Date of Last Bowel Movement 12/26/17 # Bowel Movements 2 Narrative: GENERAL: Patient appear frail but no acute distress. CARDIOVASCULAR: Normal rate and regular rhythm without murmurs, gallops, or rubs. RESPIRATORY: Markedly diminished breath sounds at the bases. Otherwise mostly clear to auscultation. GASTROINTESTINAL: Abdomen soft, non-tender, non-distended. Normal active bowel sounds MUSCULOSKELETAL: Bilateral lower extremities wrapped with intact dressings. NEURO: Alert & Oriented x4 to person, place, time, situation. Results - Labs CBC & Chem 7: 12/26/17 07:20 12/25/17 05:37 Laboratory Results - last 24 hr 12/26/17 12/26/17 12/27/17 13:46 17:23 00:25 POC Glucose 194 H 134 H 125 H Assessment and Plan - Assessment (1) Chest pain Code(s): R07.9 - Chest pain, unspecified Status: Acute (2) Lung mass Code(s): R91.8 - Other nonspecific abnormal finding of lung field Status: Acute (3) Anemia Code(s): D64.9 - Anemia, unspecified Status: Acute (4) Diabetes Code(s): E11.9 - Type 2 diabetes mellitus without complications Status: Acute (5) Hypertension Code(s): I10 - Essential (primary) hypertension Status: Acute - Plan 77-year-old male with Chest pain: hx of [place] status post bypass surgery,History of bypass surgery. -Cardiology following. Continue medical management for now given findings of lung mass and anemia. -2D echocardiogram unremarkable Lung mass: - s/p CT-guided biopsy. Pathology pending - Pain control - Pulmonology following as well. Continue supplemental oxygen. -S/P Rocephin and azithromycin due to concern for infectious process. Switched to Levaquin for 5 more days. diabetes: low dose ISS, monitor BS closely. HbA1C 5.3 anemia: hb stable. No baseline Hb noted. Pt denied any bleeding. Follow H&H. HTN: Blood pressure better. Continue amlodipine and metoprolol. clonidine prn MOUNA: Baseline unknown. F/U BMP bullous pemphigoid: open wounds over lower ext. wound care following. Appreciate assistance atrial fibrillation: on BB. Resume Eliquis DVT proph: SCDs. Eliquis. Will likely need SNF on discharge. PT to evaluate. Possible DC in 1-2 days. (1) Chest pain Qualifiers: Chest pain type: precordial pain Qualified Code(s): R07.2 - Precordial pain
[2017-12-27 15:27] LABS: Carbon Dioxide 22.9 meq/L (21.0-32.0); Potassium 4.4 meq/L (3.5-5.1)
--- NOTE | 2017-12-27 17:04 | P.DIET ---
Nutritional Evaluation Type of nutrition evaluation: initial Nutrition screening: Poor PO Intake Objective - Diagnosis Chest Pain, Lung Mass - Objective % IBW: 118 Body Weight Used for Calculations: Actual Energy Needs - Lower Range (kCal/kg): 28 Energy Needs - Upper Range (kCal/kg): 33 Lower Limit kCal/kg (kCals): 2,033 Upper Limit kCal/kg (kCals): 2,396 Lower Limit Protein Factor (Grams per Kg): 1.2 Upper Limit Protein Factor (Grams per Kg): 1.5 Lower Protein Needs (Protein): 87 Upper Protein Needs (Protein): 109 Fluid Factor (ml/kg): 28 Estimated Fluid Needs (ml): 2,033 Dietitian Reviewed in Medical Record: Current diet, Curent medications, Intake & Output, Labs, Medical history, Wound/DTI Diet Order: 1800 [place] Cardiac Wound Care Note: 7/6 L Heel unstageable pressure injury, Bilateral feet w/open bullae Objective Comments: Nutritional needs calculated with wt of 72.6kg PMH: Afib, CAD, [place] s/p CABG, DM, HTN, Lesion of R and L Lung, Bullous Pemphigoid +2 BM Assessment Assessment: Pt at nutritional risk r/t reported poor po intake, dx. Pt with Lung mass: s/p CT-guided biopsy. Pathology pending. Adequate po intake has not yet been established. Will provide Glucerna tid, each contains 220 kcals and 10 gms protein. Reviewed WOC consult. Will monitor po intake, clinical course. Recommendations: 1800 [facility] Cardiac diet Glucerna shakes tid Will monitor po intake for adequacy Dietitian to Monitor: Lab values, Intake & Output, Diet tolerance, Residuals, PO Intake, Wound/skin status
[2017-12-27] MEDS: predniSONE 20 MG Tablet PO SCH (20:55)
[2017-12-28] MEDS: Levothyroxine 75 MCG Tablet PO SCH (05:31)
[2017-12-28 06:47] LABS: Hematocrit 22.9 % (39.0-51.0); Hemoglobin 7.9 gm/dL (13.0-17.0); Mean Corpuscular HGB Conc 34.4 % (32.0-36.0); Mean Corpuscular Hemoglobin 30.2 pg (27.0-34.0); Mean Corpuscular Volume 87.8 fL (80.0-100.0); Mean Platelet Volume 6.7 fL (7.0-11.0); Platelet Count 384 th/mm3 (150-450); Red Blood Count 2.61 mil/mm3 (4.50-5.90); Red Cell Distribution Width 15.1 % (11.6-17.2); White Blood Count 11.3 th/mm3 (4.0-11.0)
[2017-12-28 07:08] LABS: Calcium 7.5 mg/dL (8.5-10.1); Carbon Dioxide 22.3 meq/L (21.0-32.0); Potassium 4.1 meq/L (3.5-5.1)
--- NOTE | 2017-12-28 08:40 | P.PNIM ---
Subjective Interval history: Patient reports is feeling okay today. No shortness of breath or chest pain. Physical Exam Vital signs: Vital Signs 12/27/17 12:00 12/27/17 16:00 12/27/17 20:00 Temperature 98.4 F 98.1 F 98.5 F Pulse Rate 70 71 75 Respiratory Rate 20 20 16 Blood Pressure 142/65 H 147/67 H 143/67 H Pulse Oximetry 94 L 94 L 94 L 12/27/17 23:51 12/28/17 04:00 12/28/17 08:00 Temperature 98.3 F 97.9 F 98.1 F Pulse Rate 75 72 68 Respiratory Rate 17 16 16 Blood Pressure 152/72 H 153/65 H 158/72 H Pulse Oximetry 95 94 L 96 Intake & Output 12/27/17 12/28/17 12/28/17 18:59 06:59 18:59 Intake Total 480 / 480 Output Total 3 / 3 Balance 477 / 477 Weight 55.8 kg Intake: Oral 480 / 480 Output: Urine 3 / 3 Stool 0 / 0 Other: Date of Last Bowel Movement 12/26/17 12/26/17 Narrative: GENERAL: Patient appear frail but no acute distress. CARDIOVASCULAR: Normal rate and regular rhythm without murmurs, gallops, or rubs. RESPIRATORY: Markedly diminished breath sounds at the bases. Otherwise mostly clear to auscultation. GASTROINTESTINAL: Abdomen soft, non-tender, non-distended. Normal active bowel sounds MUSCULOSKELETAL: Bilateral lower extremities wrapped with intact dressings. Results - Labs CBC & Chem 7: 12/28/17 06:09 12/28/17 06:09 Laboratory Results - last 24 hr 12/27/17 12/27/17 12/27/17 13:14 13:45 17:03 WBC RBC Hgb Hct MCV MCH MCHC RDW Plt Count MPV Sodium 139 Potassium 4.4 Chloride 108 H Carbon Dioxide 22.9 Anion Gap 8 BUN 23 H Creatinine 0.96 Estimated GFR 76 L POC Glucose 104 125 H Random Glucose 102 Calcium 8.0 L 12/27/17 12/28/17 12/28/17 22:42 06:09 06:09 WBC 11.3 H RBC 2.61 L Hgb 7.9 L Hct 22.9 L MCV 87.8 MCH 30.2 MCHC 34.4 RDW 15.1 Plt Count 384 MPV 6.7 L Sodium 140 Potassium 4.1 Chloride 107 Carbon Dioxide 22.3 Anion Gap 11 BUN 18 Creatinine 0.91 Estimated GFR 80 L POC Glucose 115 H Random Glucose 124 H Calcium 7.5 L 12/28/17 08:06 WBC RBC Hgb Hct MCV MCH MCHC RDW Plt Count MPV Sodium Potassium Chloride Carbon Dioxide Anion Gap BUN Creatinine Estimated GFR POC Glucose 131 H Random Glucose Calcium Assessment and Plan - Assessment (1) Chest pain Code(s): R07.9 - Chest pain, unspecified Status: Acute (2) Lung mass Code(s): R91.8 - Other nonspecific abnormal finding of lung field Status: Acute (3) Anemia Code(s): D64.9 - Anemia, unspecified Status: Acute (4) Diabetes Code(s): E11.9 - Type 2 diabetes mellitus without complications Status: Acute (5) Hypertension Code(s): I10 - Essential (primary) hypertension Status: Acute - Plan 77-year-old male with Chest pain: hx of [place] status post bypass surgery,History of bypass surgery. -Cardiology following. Continue medical management for now given findings of lung mass and anemia. -2D echocardiogram unremarkable Lung mass: - s/p CT-guided biopsy. Pathology pending - Pain control - Pulmonology following as well. Continue supplemental oxygen. -S/P Rocephin and azithromycin due to concern for infectious process. Switched to Levaquin. diabetes: low dose ISS, monitor BS closely. HbA1C 5.3 anemia: hb stable. No baseline Hb noted. Pt denied any bleeding. Follow H&H. HTN: Blood pressure better. Continue amlodipine and metoprolol. clonidine prn MOUNA: Baseline unknown. F/U BMP bullous pemphigoid: open wounds over lower ext. wound care following. Appreciate assistance atrial fibrillation: on BB. Resume Eliquis DVT proph: SCDs. Eliquis. Will likely need SNF on discharge. PT evaluation pending. pathology pending (1) Chest pain Qualifiers: Chest pain type: precordial pain Qualified Code(s): R07.2 - Precordial pain
[2017-12-28] MEDS: levoFLOXacin 750 MG Tablet PO SCH (09:37)
[2017-12-28] MEDS: Doxazosin 4 MG Tablet PO SCH (09:37)
[2017-12-28] MEDS: predniSONE 20 MG Tablet PO SCH ×2 (09:37→20:27)
[2017-12-28] MEDS: Metoprolol Tartrate 50 MG Tablet PO SCH ×2 (09:38→20:27)
[2017-12-28] MEDS: amLODIPine 10 MG Tablet PO SCH (09:38)
--- NOTE | 2017-12-28 19:53 | P.PN ---
Subjective Interval history: Alert and in no distress. Off O2 sat 95. pathology on lung Biopsy is pending. No fever. Physical Exam Vital signs: Vital Signs 12/27/17 20:00 12/27/17 23:51 12/28/17 04:00 Temperature 98.5 F 98.3 F 97.9 F Pulse Rate 75 75 72 Respiratory Rate 16 17 16 Blood Pressure 143/67 H 152/72 H 153/65 H Pulse Oximetry 94 L 95 94 L 12/28/17 08:00 12/28/17 09:10 12/28/17 12:00 Temperature 98.1 F 97.7 F Pulse Rate 68 69 Respiratory Rate 16 18 Blood Pressure 158/72 H 138/67 Pulse Oximetry 96 96 95 12/28/17 16:00 Temperature 98.3 F Pulse Rate 68 Respiratory Rate 18 Blood Pressure 150/68 H Pulse Oximetry 96 Intake & Output 12/28/17 12/28/17 12/29/17 06:59 18:59 06:59 Intake Total 480 / 480 Output Total 100 / 100 Balance 380 / 380 Weight 55.8 kg Intake: Oral 480 / 480 Output: Urine 100 / 100 Other: # Voids 4 # Incontinent Voids 4 Date of Last Bowel Movement 12/26/17 # Bowel Movements 0 GENERAL: Alert and no distress SKIN: Warm and dry. HEAD: Normocephalic. EYES: No scleral icterus. No injection or drainage. NECK: Supple, trachea midline. No JVD or lymphadenopathy. CARDIOVASCULAR: Regular rate and rhythm without murmurs, gallops, or rubs. RESPIRATORY: Breath sounds equal bilaterally. Occ wheeze in upper chest. Neuro:No deficits grossly GASTROINTESTINAL: Abdomen soft, non-tender, nondistended. MUSCULOSKELETAL: No cyanosis, or edema. BACK: Nontender without obvious deformity. No CVA tenderness. Results - Labs CBC & Chem 7: 12/28/17 06:09 12/28/17 06:09 Laboratory Results - last 24 hr 12/27/17 12/28/17 12/28/17 22:42 06:09 06:09 WBC 11.3 H RBC 2.61 L Hgb 7.9 L Hct 22.9 L MCV 87.8 MCH 30.2 MCHC 34.4 RDW 15.1 Plt Count 384 MPV 6.7 L Sodium 140 Potassium 4.1 Chloride 107 Carbon Dioxide 22.3 Anion Gap 11 BUN 18 Creatinine 0.91 Estimated GFR 80 L POC Glucose 115 H Random Glucose 124 H Calcium 7.5 L 12/28/17 12/28/17 08:06 13:21 WBC RBC Hgb Hct MCV MCH MCHC RDW Plt Count MPV Sodium Potassium Chloride Carbon Dioxide Anion Gap BUN Creatinine Estimated GFR POC Glucose 131 H 126 H Random Glucose Calcium Assessment and Plan - Assessment (1) COPD (chronic obstructive pulmonary disease) with chronic bronchitis Code(s): J44.9 - Chronic obstructive pulmonary disease, unspecified Status: Acute Plan: Cont Duonebs qid. O2 2 L PRN (2) Mass of lung parenchyma Code(s): R91.8 - Other nonspecific abnormal finding of lung field Status: Acute Plan: Await path report. CXR in am. (3) Chest pain Code(s): R07.9 - Chest pain, unspecified Status: Acute (4) Lung mass Code(s): R91.8 - Other nonspecific abnormal finding of lung field Status: Acute (5) Anemia Code(s): D64.9 - Anemia, unspecified Status: Acute (6) Diabetes Code(s): E11.9 - Type 2 diabetes mellitus without complications Status: Acute (7) Hypertension Code(s): I10 - Essential (primary) hypertension Status: Chronic - Plan 1. Chest X ray in am. 2. O2 2 L PRN 3. Duoneb nebs qid. 4. Continue Symbicort 160/4.5 mcg 2 puffs bid 5. PFT with bronchodilator today. 6. D/C Antibiotics. (3) Chest pain Qualifiers: Chest pain type: precordial pain Qualified Code(s): R07.2 - Precordial pain (6) Diabetes Qualifiers: Diabetes mellitus type: type 2 (7) Hypertension Qualifiers: Hypertension type: essential hypertension Qualified Code(s): I10 - Essential (primary) hypertension
--- NOTE | 2017-12-29 04:25 | XR ---
EXAM DATE: 12/29/2017 3:56 AM EDT AGE/SEX: 77 years / Male INDICATIONS: Infiltrate. CLINICAL DATA: This is the patient's subsequent encounter. Patient reports that signs and symptoms h ave been present for 4 - 6 days and indicates a pain score of 0/10. MEDICAL/SURGICAL HISTORY: . Cardiovascular disease. Hypertension None. COMPARISON: [facility], CHEST 1V SINGLE AP, 12/26/2017. . FINDINGS: Persistent patchy airspace disease in the right lower lung zone, likely stable given differences in t echnique. Cardiomediastinal contours are within normal limits. Remainder of the exam is unchanged. CONCLUSION: 1. Stable patchy airspace disease in the right lower lung zone. Electronically signed by: Osvaldo Yates MD 12/29/2017 4:23 AM EDT
[2017-12-29] MEDS: Levothyroxine 75 MCG Tablet PO SCH (07:46)
--- NOTE | 2017-12-29 07:55 | P.PNONC ---
Subjective Interval history: Patient seen and examined, vital signs, labs, medications, pathology results, imaging all reviewed. [employer] notes reviewed. Subjectively; patient reports continually feeling fatigued. He tells me he feels "no better or worse ". He underwent CT-guided biopsy of a right upper lobe lung mass on 12/25/2017; pathologic findings revealed necrotic tissue without evidence of malignancy. Objective Vital Signs/Intake & Output: Vital Signs 12/28/17 08:00 12/28/17 09:10 12/28/17 12:00 Temperature 98.1 F 97.7 F Pulse Rate 68 69 Respiratory Rate 16 18 Blood Pressure 158/72 H 138/67 Pulse Oximetry 96 96 95 12/28/17 16:00 12/28/17 20:00 12/29/17 00:00 Temperature 98.3 F 98.0 F 98.0 F Pulse Rate 68 78 78 Respiratory Rate 18 16 16 Blood Pressure 150/68 H 140/76 140/76 Pulse Oximetry 96 100 100 12/29/17 04:00 Temperature 98.0 F Pulse Rate 67 Respiratory Rate 16 Blood Pressure 160/73 H Pulse Oximetry 100 Intake & Output 12/28/17 12/29/17 12/29/17 18:59 06:59 18:59 Intake Total 480 / 480 Output Total 100 / 100 Balance 380 / 380 Intake: Oral 480 / 480 Output: Urine 100 / 100 Other: # Voids 4 # Incontinent Voids 4 Date of Last Bowel Movement 12/26/17 # Bowel Movements 0 Result Diagrams: 12/28/17 06:09 12/28/17 06:09 Laboratory Results: Laboratory Results - last 24 hr 12/28/17 12/28/17 08:06 13:21 POC Glucose 131 H 126 H Imaging Studies: Impressions Chest X-Ray 12/29/17 00:00 CONCLUSION: 1. Stable patchy airspace disease in the right lower lung zone. Medications: Active Medications Generic Name Dose Route Start Last Admin Trade Name Freq PRN Reason Stop Dose Admin Amlodipine Besylate 10 mg 12/27/17 09:00 12/28/17 09:38 Norvasc PO 10 mg DAILY MAXIMILIAN Administration Apixaban 2.5 mg 12/27/17 09:00 12/28/17 20:27 Eliquis PO 2.5 mg BID MAXIMILIAN Administration Aspirin 81 mg 12/27/17 09:00 12/28/17 09:37 Ecotrin PO 81 mg DAILY MAXIMILIAN Administration Doxazosin Mesylate 4 mg 12/27/17 09:00 12/28/17 09:37 Cardura PO 4 mg DAILY MAXIMILIAN Administration Levofloxacin 750 mg 12/27/17 09:00 12/28/17 09:37 Levaquin PO 750 mg DAILY MAXIMILIAN Administration Levothyroxine Sodium 75 mcg 12/28/17 06:00 12/29/17 07:46 Synthroid PO 75 mcg DAILY@0600 MAXIMILIAN Administration Metoprolol Tartrate 50 mg 12/27/17 09:00 12/28/17 20:27 Lopressor PO 50 mg BID MAXIMILIAN Administration Prednisone 20 mg 12/27/17 21:00 12/28/17 20:27 Deltasone PO 20 mg BID MAXIMILIAN Administration Objective Remarks: GENERAL: Elderly male, appears to be rather frail, not acutely distressed. Laying in bed. SKIN: Warm and dry. HEAD: Normocephalic. EYES: No scleral icterus. No injection or drainage. Conjunctivae are pale. NECK: Supple, trachea midline. No JVD or lymphadenopathy. LYMPHATIC: No adenopathy. CARDIOVASCULAR: Regular rate and rhythm without murmurs. RESPIRATORY: Breath sounds equal bilaterally. No accessory muscle use. Poor basilar breath sounds. GASTROINTESTINAL: Abdomen soft, non-tender, nondistended. EXTREMITIES: No cyanosis, or edema. MUSCULOSKELETAL: Generally decreased muscle mass of the upper and lower extremities. NEUROLOGICAL: No obvious focal deficit. Awake, alert, and oriented x3. PSYCHIATRIC: Appropriate mood and affect; insight and judgment normal. Skin: Numerous ulcerated lesions with bruising and skin peeling noted over the lower extremities. Both lower extremities have been bandaged from the ankles distally. Assessment/Plan (1) Lung mass Code(s): R91.8 - Other nonspecific abnormal finding of lung field Status: Acute (2) Anemia Code(s): D64.9 - Anemia, unspecified Status: Acute - Plan 77-year-old man who presents to this facility with complaints of chest pain last week, CT scan of the thorax revealed a 3.5 cm right upper lobe lung mass/ dense consolidation as well as left lower lobe consolidation/atelectasis/mass. CT-guided biopsy of the right upper lobe lung mass was performed on 12/25/2017; pathologic findings revealed necrotic tissue. Images of the biopsy were reviewed, the needle was tracked right down the center of right upper lobe lung lesion. Additional significant issues include anemia (normocytic) with serum iron studies pointing towards a chronic anemia/chronic inflammatory disorder. Blood work dating back to October 2017 was reviewed, at that time the patient had a hemoglobin level of greater than 12.5 g/dL. He appears to have some early stage chronic renal dysfunction with a creatinine in the 1.3-1.4 range. Patient has no evidence of vitamin B12 deficiency or folic acid deficiency. Plan: Right upper lobe lung mass: Pathologic findings indicate necrotic findings. The lesion in question likely represents inflammatory changes. I do not have previous CT scans to compare with however in October 2017 the patient did undergo a chest x-ray which revealed no consolidation or mass like areas within the right upper lobe or left lower lobe of the lung. Given the current size of this lesion I would be doubtful that a true neoplastic process would arise so rapidly so as to measure 3.5 cm within 2 months. In my opinion the prudent approach would be to repeat imaging scans in the next 8-10 weeks to reevaluate. Additional biopsies may be required at some point should this lesion not resolve. Anemia: I have requested serum protein electrophoresis, CRP level, ESR level and stool for occult blood testing. The patient does have abnormal serum iron studies but these seem to point more towards chronic inflammatory changes as opposed to true iron deficiency. Possible underlying inflammatory disorders include skin ulceration and breakdown of the lower extremities, possible underlying pemphigoid. Hematology/oncology service will continue to follow along with you. (2) Anemia Qualifiers: Anemia type: unspecified type Qualified Code(s): D64.9 - Anemia, unspecified
--- NOTE | 2017-12-29 08:38 | P.DS ---
Date of admission: 12/25/17 12:48 Primary care physician: UNKNOWN Brief History from admission: HPI from the admitting physician Patient is a 77-year-old male with past medical history of diabetes,bullous pemphigoid, CA status post bypass surgery, hypertension, atrial fibrillation presented to the emergency room with complaints of chest pain. He states that he was laying in bed and he started experiencing chest pain in his mid chest rating it an 8 out of 10 which lasted about 45 minutes to an hour. He called 911 and was brought in. There was no nausea vomiting associated with the chest pain. He states that the pain is the same when he had that bypass surgery. He denied any lightheadedness or dizziness. He denies any radiation to his neck, jaw, arms. currently his chest pain has resolved since he received the nitroglycerin. He feels tired and wants to rest. He denies any lung issues in the past. He admits to coughing on and off however he states he has not been around any sick contacts. He denies any fevers or chills. He denies any abdominal pain. He tells me he has his blistering condition on his lower extremities but no one knows what is causing it. Someone changes the dressing every 1-2 days. Per ER documentation, the patient received sublingual nitroglycerin prior to the arrival to the emergency room with minimal effect, ER physician provided him with nitroglycerin ointment and per patient is helped. DS: Diagnosis - Discharge Diagnosis (1) Chest pain Status: Acute (2) Lung mass Status: Acute (3) Anemia Status: Acute (4) Diabetes Status: Acute (5) Hypertension Status: Chronic DS: Medications - Discharge Medications Prescriptions: amlodipine [Norvasc] 10 mg PO DAILY #30 tab levofloxacin 750 mg PO DAILY #3 tab prednisone 20 mg PO DAILY #5 tab DS: Summary Hospital Course: 77-year-old male admitted and treated for the following: Chest pain: hx of CA status post bypass surgery,History of bypass surgery. -Cardiology followed the patient. Workup unremarkable. Continue medical management for now given findings of lung mass and anemia. -2D echocardiogram unremarkable Lung mass: - s/p CT-guided biopsy. Pathology revealed necrosis. No evidence of malignancy. Patient was followed by hematology oncology was advised repeating CT in 6-8 weeks. Pulmonology followed the patient as well. He was treated with antibiotics including Rocephin and azithromycin due to concern for infectious process. He was switched to Levaquin. Patient's shortness of breath and overall condition significantly improved. However he remains debilitated requiring rehabilitation. diabetes: low dose ISS, monitor BS closely. HbA1C 5.3 anemia: hb stable. No baseline Hb noted. Pt denied any bleeding. Anemia workup ongoing. He is to follow-up outpatient with hematology/oncology. HTN: Blood pressure stabilized. Continue amlodipine and metoprolol. MOUNA: Improved after IV fluid. bullous pemphigoid: open wounds over lower ext. wound care followed the patient. continue local wound care. atrial fibrillation: on BB. Continue Eliquis - Time Spent with Patient Total time spent providing and/or coordinating discharge services: Greater than 30 minutes - Quality: VTE Deep Vein Thrombosis/Pulmonary Embolism Present on Admission: No Exam Vital signs: Vital Signs 12/28/17 09:10 12/28/17 12:00 12/28/17 16:00 Temperature 97.7 F 98.3 F Pulse Rate 69 68 Respiratory Rate 18 18 Blood Pressure 138/67 150/68 H Pulse Oximetry 96 95 96 12/28/17 20:00 12/29/17 00:00 12/29/17 04:00 Temperature 98.0 F 98.0 F 98.0 F Pulse Rate 78 78 67 Respiratory Rate 16 16 16 Blood Pressure 140/76 140/76 160/73 H Pulse Oximetry 100 100 100 12/29/17 08:00 Temperature 98.5 F Pulse Rate 65 Respiratory Rate 18 Blood Pressure 158/70 H Pulse Oximetry 97 Intake & Output 12/28/17 12/29/17 12/29/17 18:59 06:59 18:59 Intake Total 480 / 480 200 / 200 Output Total 100 / 100 Balance 380 / 380 200 / 200 Intake: Oral 480 / 480 200 / 200 Output: Urine 100 / 100 Other: # Voids 4 2 # Incontinent Voids 4 Date of Last Bowel Movement 12/26/17 # Bowel Movements 0 Narrative: GENERAL: Patient appear frail but no acute distress. CARDIOVASCULAR: Normal rate and regular rhythm without murmurs, gallops, or rubs. RESPIRATORY: Markedly diminished breath sounds at the bases. Otherwise mostly clear to auscultation. GASTROINTESTINAL: Abdomen soft, non-tender, non-distended. Normal active bowel sounds MUSCULOSKELETAL: Bilateral lower extremities wrapped with intact dressings. Results Procedures completed during hospitalization: CT-guided biopsy Labs on day of discharge: Labs from last 24 hours 12/28/17 13:21 POC Glucose 126 H - Impressions ITS Impressions Abdomen/Pelvis CT 12/24/17 00:00 CONCLUSION: 1. No definite suspicious CT findings in the abdomen or pelvis. 2. Severe atherosclerotic vascular disease. 3. Dilated urinary bladder. Chest CTA 12/24/17 02:57 CONCLUSION: 1. The study is negative for pulmonary embolism. 2. Abnormal opacities in both lungs, the largest is anterior superior on the right measuring 3.7 cm. The other opacities are in the left lung near the periphery. All of the opacities are devoid of air bronchograms. Malignancy and infectious processes are differential considerations. Lung Biopsy CT 12/25/17 00:00 CONCLUSION: Uncomplicated CT guided biopsy of right upper lobe pulmonary mass.. Chest X-Ray 12/29/17 00:00 CONCLUSION: 1. Stable patchy airspace disease in the right lower lung zone. Discharge Plan - Discharge Disposition Patient Disposition: Discharge to SNF - Discharge Condition Condition: Good - Discharge Order Discharge Orders: Discharge Order (Routine); Ordered 12/29/17 Ordered By: Cleveland Campbell - Physicians Team Primary Care Provider: UNKNOWN, Attending Provider: Cleveland Campbell Other Providers: Rohan Caicedo MD ; Blaze Darling MD ; [facility] ; Vinay Butler MD
[2017-12-29] MEDS: levoFLOXacin 750 MG Tablet PO SCH (09:39)
[2017-12-29] MEDS: Doxazosin 4 MG Tablet PO SCH (09:40)
[2017-12-29] MEDS: amLODIPine 10 MG Tablet PO SCH (09:40)
[2017-12-29] MEDS: Metoprolol Tartrate 50 MG Tablet PO SCH (09:40)
[2017-12-29] MEDS: predniSONE 20 MG Tablet PO SCH (09:40)
== END 2017-12-29 12:25 ==
LOC: NEPC 21:27 → NEDA 21:27 → NEPFCDU 12-24 13:46 → N03 12-26 03:59 → UNDODISIN 12-26 04:00
PROVIDERS: ADMIT Family Medicine; ATTEND Family Medicine